=== PATIENT | male | born 1970 | race Caucasian/White ===

== ENCOUNTER 2020-04-02 09:51 | Outpatient (CLI) | payer BC, SELFPAY ==
--- NOTE | ~2020-04-02 | XR_ITS ---
EXAMINATION: XR chest 2V DATE: 04/02/2020 10:15 INDICATION: Cough. TECHNIQUE: Frontal and lateral views of the chest were obtained. COMPARISON: CT abdomen and pelvis 06/27/2010 FINDINGS: The chest demonstrates clear lungs without pneumonia, pleural effusion, or pneumothorax. Th e heart size is normal. IMPRESSION: 1. No acute cardiopulmonary disease. Reviewed, dictated and finalized at location B.
--- NOTE | ~2020-04-02 | XR_ITS ---
EXAMINATION: XR thoracic spine 2V DATE: 04/02/2020 10:16 INDICATION: Dorsalgia. TECHNIQUE: 3 views of thoracic spine were obtained. COMPARISON: None. FINDINGS: There is kyphosis of thoracic spine. Vertebral body heights are normal. There is mildly dec reased disc height at multiple levels in thoracic spine, worse in the upper thoracic spine. There are endplate osteophytes at most levels. IMPRESSION: 1. Mild thoracic spondylosis. 2. Thoracic kyphosis. Reviewed, dictated and finalized at location B.
== END 2020-04-02 09:52 | disposition home or self-care (01) ==
PROVIDERS: PCP Family Medicine; Visit Provider Nurse Practitioner Family
DX: R05 Cough (principal); M54.9 Dorsalgia, unspecified; M47.894 Other spondylosis, thoracic region
CPT/HCPCS: 71046; 72070

== ENCOUNTER → 2021-09-19 03:41 | Outpatient (CLI) | payer BC, SELFPAY ==
[2021-09-19 12:15] LABS: SARS-CoV-2 RNA PCR Negative
== END ==
PROVIDERS: PCP Family Medicine; Visit Provider Internal Medicine Gastroenterology
DX: Z01.812 Encounter for preprocedural laboratory examination (principal); Z20.822 Contact with and (suspected) exposure to COVID-19
CPT/HCPCS: C9803; U0003; U0005

== ENCOUNTER 2021-09-22 00:41 | Day surgery (SDC) | payer BC, SELFPAY ==
[2021-09-08 15:43] VITALS: BMI 25.1
[2021-09-22 09:00] VITALS: BP 127/78; PULSE 74; RESP 16; TEMP 37.1; O2SAT 97
--- NOTE | 2021-09-22 09:12 | P.PNAN_ITS ---
Anes - Initial Pre Proc Eval Procedure: Operation Date: 09/22/21 10:00 Proposed Procedures p Screening Colonoscopy - Master Alexis MD Date/Time: 09/22/21 09:12 Surgeon: Master Alexis MD Pre Op Diagnosis: neoplasm screening Patient Data Age: 51 Gender: M Height: 1.75 m Weight: 76.4 kg Last Vital Signs Temp 37.1 C 09/22/21 09:00 Pulse 74 09/22/21 09:00 Resp 16 09/22/21 09:00 BP 127/78 09/22/21 09:00 Pulse Ox 97 09/22/21 09:00 Allergies Allergy/AdvReac Type Severity Reaction Status Date / Time Penicillins Allergy Unknown Rash Verified 09/22/21 08:59 Home Medications Medication Instructions Recorded Confirmed Type No Home Medications 07/21/21 07/21/21 History sulfamethoxazole 800 1 tablet PO Q12H #42 tablet 07/21/21 07/21/21 Rx mg-trimethoprim 160 mg tablet Patient hx anesthesia problems: none Family hx anesthesia problems: none Results Review: All pre-operative results and documents have been reviewed as part of the pre-operative evaluation. [facility] Past Medical History Medical History BMI 23.0-23.9, adult BMI 24.0-24.9, adult Eye lesion Screening for malignant neoplasm of prostate Tobacco abuse Family History Family History Father Malignant neoplasm of prostate Family history of diabetes mellitus in first degree relative Mother Sibling Hypertension Sibling Cancer Hypertension Sibling Family history of diabetes mellitus in first degree relative Other Diabetes mellitus Social History Social History Smoking packs per day: 1 Smoking cigarettes per day: 20.0 Years smoked: 30 Smoking pack-years: 30.00 Smoking status: Current every day smoker Tobacco type: cigarettes Second hand tobacco smoke exposure: Yes Alcohol intake: never Substance use: never Substance use type: does not use Living arrangements: alone Additional occupation/education comments: [employer] Gender identity (if verbalized by the patient): Male Spiritual care concerns: No Anes - Eval Final PreProcedure Day of Procedure 09/22/21 09:12 Patient weight: normal Heart: regular rate and rhythm Lungs: clear to auscultation Airway: Mallampati scale class II Neurological: alert and oriented Last oral intake: >/= 8 hours ASA classification: II Emergent: no Anesthetic plan: proceed Anesthesia type and monitoring: general GIVS and standard monitoring Results Review: All pre-operative results and documents have been reviewed as part of the pre-operative evaluation. Informed Consent: The patient's anesthetic plan and its attendant risks and benefits were discussed with the patient/family/POA. Questions were solicited and answers provided to the satisfaction of the patient/family/POA.
--- NOTE | 2021-09-22 09:14 | PM.HPGS ---
History of Present Illness History of Present Illness Consent: Risks, benefits, and alternatives have been discussed and questions answered. Patient agrees to proceed with procedure. Chief complaint: neoplasm screening Narrative: Josep Finley is a 51 year old male here for first screening colonoscopy Review of Systems Constitutional: Constitutional: Denies headache(s) and Denies weakness Eyes: Eyes: Denies blurry vision ENT: Reports Normal hearing present, Denies headache(s) and Denies neck pain Cardiovascular: Cardiovascular: Denies chest pain and Denies dyspnea Respiratory: Respiratory: Denies dyspnea Gastrointestinal: Gastrointestinal: Reports no additional gastrointestinal complaints Genitourinary: Genitourinary: Denies dysuria Musculoskeletal: Musculoskeletal: Denies neck pain Integumentary/Breasts: Skin/Breast: Denies dry skin Neurologic: Reports Normal hearing present, Denies headache(s) and Denies weakness Psychiatric: Psychiatric: Denies anxiety Endocrine: Endocrine: Denies change in body appearance Hematologic/Lymphatic: Hematologic/Lymphatic: Denies easy bleeding Allergic/Immunologic: Allergic/Immunologic: Denies urticaria [facility] Past Medical History Medical History BMI 23.0-23.9, adult BMI 24.0-24.9, adult Eye lesion Screening for malignant neoplasm of prostate Tobacco abuse Family History Family History Father Malignant neoplasm of prostate Family history of diabetes mellitus in first degree relative Mother Sibling Hypertension Sibling Cancer Hypertension Sibling Family history of diabetes mellitus in first degree relative Other Diabetes mellitus Social History Social History Smoking packs per day: 1 Smoking cigarettes per day: 20.0 Years smoked: 30 Smoking pack-years: 30.00 Smoking status: Current every day smoker Tobacco type: cigarettes Second hand tobacco smoke exposure: Yes Alcohol intake: never Substance use: never Substance use type: does not use Living arrangements: alone Additional occupation/education comments: [employer] Gender identity (if verbalized by the patient): Male Spiritual care concerns: No Meds Home Medications and Allergies Home Medications Medication Instructions Recorded Confirmed Type No Home Medications 07/21/21 07/21/21 History sulfamethoxazole 800 1 tablet PO Q12H #42 tablet 07/21/21 07/21/21 Rx mg-trimethoprim 160 mg tablet Allergies Allergy/AdvReac Type Severity Reaction Status Date / Time Penicillins Allergy Unknown Rash Verified 09/22/21 08:59 Vital Signs Vital Signs - 24 hr 09/22/21 09:00 Temperature 98.7 F Pulse Rate 74 Respiratory Rate 16 Blood Pressure 127/78 Pulse Oximetry 97 Exam Const: General: comfortable and no acute distress HENMT: General nose exam: Normal nares present Eyes: General: appearance normal, both eyes and all related structures Neck: Neck: no JVD Resp: Auscultation: clear to auscultation bilaterally Cardio: Rate: regular rate Rhythm: regular rhythm GI: Inspection: non-distended GI Palp: Yes Soft to palpation Skin: General skin exam: normal color Neuro: General: gait normal Speech: normal speech Extrem: General: normal to inspection Psych: Mental Status: mental status grossly normal Assessment and Plan Assessment and plan (1) Screening for malignant neoplasm of colon: Code(s): Z12.11 - Encounter for screening for malignant neoplasm of colon Status: Acute Assessment and Plan: colonoscopy
[2021-09-22] MEDS: LACTATED RINGERS 1,000 ML 150 ML IV CONT (09:15)
[2021-09-22 09:35] VITALS: BP 88/59; PULSE 61; RESP 13; O2SAT 97
[2021-09-22 09:45] VITALS: BP 110/79; PULSE 50; RESP 12; O2SAT 95
[2021-09-22 09:55] VITALS: BP 142/89; PULSE 65; RESP 12; O2SAT 100
== END 2021-09-22 10:06 | disposition home or self-care (01) ==
PROVIDERS: PCP Family Medicine; Visit Provider Internal Medicine Gastroenterology
PROC: 0DJD8ZZ Inspection of Lower Intestinal Tract, Via Natural or Artificial Opening Endoscopic (ICD-10-PCS; CPT 45378; principal; 2021-09-22 10:00)
DX: Z12.11 Encounter for screening for malignant neoplasm of colon (principal); K64.8 Other hemorrhoids; K63.5 Polyp of colon; F17.210 Nicotine dependence, cigarettes, uncomplicated
CPT/HCPCS: 45385; 88305; J2001; J2704; J7120

== ENCOUNTER 2022-07-18 18:21 | Emergency (ER) | payer BC, SELFPAY ==
[2022-07-18] VITALS (10 sets, daily range): BP systolic 94–123; BP diastolic 62–81; PULSE 64–85; RESP 13–21; O2SAT 96–98
--- NOTE | ~2022-07-18 | XR_ITS ---
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 RESULT: Lines, tubes, and devices: None. Lungs and pleura: Clear. Cardiomediastinal silhouette: Stable. Other: No acute osseous or upper abdominal finding. IMPRESSION: No acute cardiopulmonary process. Reviewed, dictated and finalized at location K. TRICAL TESTS SUPERVISOR
--- NOTE | 2022-07-18 18:24 | ECG_ITS ---
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
--- NOTE | 2022-07-18 18:54 | ED.SYNCOPE ---
HPI - Syncope General Chief Complaint: Syncope Stated Complaint: syncope Time Seen by Provider: 07/18/22 18:42 History of Present Illness HPI narrative: Patient is a 52-year-old male presenting with syncope. Patient states that he was having a couple of beers and smoked a little marijuana while hanging out with his adult son and brother. States that he was standing in the kitchen when he suddenly became lightheaded and drenched in cold sweat. Patient started to pass out so his son helped lower him to the ground. His son states that he then just up and became extremely pale before again syncopizing. Patient states that he continued to feel lightheaded and nauseated until EMS started an IV. States that he is starting to feel better at this point. States that he has been dealing with viral symptoms since . States that he has chest tightness and some shortness of breath but he denies chest pain or palpitations. States he has not seen a doctor in many years. Denies recent fevers, headache, abdominal pain, vomiting, diarrhea, dysuria, leg swelling. Related Data Allergies Allergy/AdvReac Type Severity Reaction Status Date / Time Penicillins Allergy Unknown Rash Verified 09/22/21 08:59 Review of Systems Review of Systems: All systems reviewed & are unremarkable except as noted in HPI and below PMFSH Past Medical History Medical History BMI 23.0-23.9, adult BMI 24.0-24.9, adult Eye lesion Screening for malignant neoplasm of prostate Tobacco abuse Family History Family History Father Malignant neoplasm of prostate Family history of diabetes mellitus in first degree relative Mother Sibling Hypertension Sibling Cancer Hypertension Sibling Family history of diabetes mellitus in first degree relative Other Diabetes mellitus Social History Social History Smoking packs per day: 1 Smoking cigarettes per day: 20.0 Years smoked: 30 Smoking pack-years: 30.00 Smoking status: Current every day smoker Tobacco type: cigarettes Second hand tobacco smoke exposure: Yes Alcohol intake: never Substance use: never Substance use type: does not use Additional occupation/education comments: [employer] Gender identity (if verbalized by the patient): Male Spiritual care concerns: No Exam Narrative: GENERAL: Well-appearing, well-nourished, and in no acute distress. HEAD: Normocephalic, atraumatic. EYES: PERRLA and EOMI. ENT: Nares clear, no rhinorrhea or epistaxis. Mucous membranes dry NECK: Supple. CHEST: Diminished breath sounds bilaterally with decreased air movement, no respiratory distress HEART: Regular rate and rhythm. No murmur heard. Normal peripheral pulses. ABDOMEN: Soft, nontender, nondistended, normal active bowel sounds. EXTREMITIES: Normal range of motion. No edema. SKIN: Warm, dry, no rash. NEURO: No focal deficits. Alert and oriented x3. PSYCH: Normal mood and affect. Course Vital Signs Vital signs: Vital Signs Pulse Rate 72 07/18/22 18:40 Respiratory Rate 16 07/18/22 18:40 Blood Pressure 94/62 L 07/18/22 18:40 Pulse Oximetry 98 07/18/22 18:40 Pulse Rate 78 07/18/22 21:38 Respiratory Rate 13 07/18/22 21:38 Blood Pressure 117/75 07/18/22 21:38 Pulse Oximetry 96 07/18/22 21:38 MDM - Syncope MDM Narrative Medical decision making narrative: Patient is a 52-year-old male presenting with syncope. Patient was orthostatic for EMS and has soft pressures here in the 90s over 60s. Fluids are ongoing. Exam is concerning for diminished breath sounds bilaterally with decreased air movement. Suspect that there is a component of undiagnosed COPD as the patient has not seen a physician for many years and states that he has smoked h
[2022-07-18] MEDS: methylPREDNISolone SOD SUCC 125 MG VIAL IV PUSH (19:17)
[2022-07-18] MEDS: SODIUM CHLORIDE 0.9% IV 1,000 ML 999 ML IV CONT ×2 (19:17→20:36)
[2022-07-18 19:20] LABS: Basophils Percent Auto 0.4 % (0.2-1.2); Eosinophils Absolute Auto 0.1 K/mm3 (0-0.3); Eosinophils Percent Auto 1.4 % (0-4.4); Hematocrit 44.4 % (42.0-52.0); Hemoglobin 15.2 g/dL (14.0-18.0); Immature Granulocyte Absolute 0.05 K/mm3 (0.00-0.031); Immature Granulocyte Percent A 0.5 % (0-0.5); Lymphocytes Percent Auto 19.3 % (18.3-44.2); Mean Corpuscular HGB Conc 34.2 g/dl (32-36); Mean Corpuscular Hemoglobin 32.3 pg (26-34); Mean Corpuscular Volume 94.5 fl (80-100); Mean Platelet Volume 10.7 fl (7.4-10.4); Monocytes Percent Auto 9.3 % (2.6-8.5); Neutrophils Absolute Auto 7.2 K/mm3 (1.3-6.7); Neutrophils Percent Auto 69.1 % (45.5-73.1); Platelet Count Result 183 k/mm3 (150-375); Red Cell Distribution Width 13.2 % (11.5-14.5); White Blood Count 10.4 K/mm3 (4.5-10.0)
[2022-07-18 19:33] LABS: Alanine Aminotransferase 29 U/L (6-50); Albumin Level 4.2 g/dL (3.5-5.1); Alkaline Phosphatase 87 U/L (38-126); Anion Gap 7 mmol/L (8-16); Aspartate Amino Transferase 36 U/L (17-59); Bilirubin,Total 0.6 mg/dL (0.2-1.3); Blood Urea Nitrogen 19 mg/dL (9-20); Calcium 8.7 mg/dL (8.4-10.2); Carbon Dioxide 27 mmol/L (22-30); Chloride 103 mmol/L (98-107); Estimated CRCL calculation 110 ml/min; Estimated Glomerular Filt Rate > 60; Glucose 106 mg/dL (65-110); Potassium 4.5 mmol/L (3.4-5.0); Sodium 137 mmol/L (137-145)
[2022-07-18 19:54] LABS: Troponin I < 0.012 ng/mL (0.000-0.034)
[2022-07-18 19:57] LABS: Influenza A QL RT-PCR Negative (Negative); Influenza B QL RT-PCR Negative (Negative); SARS-CoV-2 RNA PCR Negative
--- NOTE | 2022-07-18 21:18 | PC.NURSE ---
patient refused neb tx. provider aware
== END 2022-07-18 21:38 | disposition home or self-care (01) ==
PROVIDERS: Emergency Provider Emergency Medicine; PCP Family Medicine
DX: I95.1 Orthostatic hypotension (principal); F17.210 Nicotine dependence, cigarettes, uncomplicated; Z20.822 Contact with and (suspected) exposure to COVID-19
CPT/HCPCS: 36415; 71046; 80053; 84484; 85025; 87636; 93005; 96361; 96374; 99284; J2930; J7030

== ENCOUNTER 2022-08-08 06:32 | Outpatient (CLI) | payer BC, SELFPAY ==
[2022-08-08 07:18] LABS: Cholesterol 188 mg/dL (0-200); HDL Direct 42 mg/dL; Triglycerides 80 mg/dL (<150)
[2022-08-08 07:28] LABS: LDL Cholesterol Direct 107 mg/dL
[2022-08-08 07:50] LABS: Prostate Specific Antigen 1.8 ng/mL (< OR = 4.0)
== END 2022-08-08 06:33 | disposition home or self-care (01) ==
PROVIDERS: PCP Family Medicine; Visit Provider Nurse Practitioner Family
DX: Z13.220 Encounter for screening for lipoid disorders (principal); Z12.5 Encounter for screening for malignant neoplasm of prostate; Z80.42 Family history of malignant neoplasm of prostate; Z13.29 Encounter for screening for other suspected endocrine disorder
CPT/HCPCS: 36415; 80061; 84153; 84443; G0103

== ENCOUNTER 2022-08-28 14:01 | Outpatient (CLI) | payer BC, SELFPAY ==
--- NOTE | ~2022-08-28 | CT_ITS ---
EXAMINATION: CT lung screening DATE: 08/28/2022 14:21 INDICATION: smoking history and increased dyspnea w/exertion TECHNIQUE: Computed tomography (CT) of the chest was performed without intravenous contrast. Addition al 3D reconstructions utilizing coronal maximum intensity projection (MIP) were performed. Automated exposure control and iterative reconstruction technique were employed. The dose-length product was 13 4.00 mGy-cm. COMPARISON: None FINDINGS: Normal variant azygos lobe and fissure. 2 mm right upper lobe nodule on series 4, image 46. 3 mm flat intrafissural lymph node along the left major fissure. No other suspicious pulmonary nodules, pneumo jose ramon, pulmonary edema or pleural effusion. Heart size is normal. Aortic valve calcification. Thoracic aorta is normal in caliber. No pathologically enlarged thoracic lymphadenopathy. Chronic mild anterio r wedging of a lower thoracic vertebral bodies. Moderate spondylosis. IMPRESSION: 1. Lung-RADS category 2: Benign appearance or behavior. Continue annual screening with noncontrast lo w-dose chest CT in 12 months. Reviewed, dictated and finalized at location A. TECHNOLOGIST IMPRESSION: 1. Lung-RADS category 2: Benign appearance or behavior. Continue annual screeni ng with noncontrast low-dose chest CT in 12 months.
== END 2022-08-28 14:02 | disposition home or self-care (01) ==
PROVIDERS: PCP Family Medicine; Visit Provider Nurse Practitioner Family
DX: Z12.2 Encounter for screening for malignant neoplasm of respiratory organs (principal); F17.210 Nicotine dependence, cigarettes, uncomplicated
CPT/HCPCS: 71271

== ENCOUNTER 2024-10-24 01:06 | Emergency (ER) | payer BC, SELFPAY ==
--- NOTE | ~2024-10-24 | XR_ITS ---
Right Knee Technique: AP, lateral, and oblique views were obtained. Clinical History: Pain Findings: No fracture or dislocation is seen. Osseous alignment is anatomic. Joint spaces are preserv ed without degenerative or erosive change. Soft tissues are unremarkable. No joint effusion is seen. Impression: Unremarkable right knee radiographs. Reviewed, dictated and finalized at [facility]. Impression: Unremarkable right knee radiographs.
--- OUTSIDE RECORDS SUMMARY | 2024-10-24 01:09 | XMS_ITS ---
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 LEFT C5/6 & C6/7 SESI (s) SOCIAL HISTORY Tobacco Use: Social History Observation Description Date Details (start date - stop date) Current Smoker NA - NA Sex Assigned At : Social History Observation Description Sex Assigned At Unknown Tobacco Use/Smoking Question Answer Notes Are you a current smoker PROBLEMS Problem Type ICD Code Onset Dates Problem Status W/U Status Risk SNOMED Code Notes Problem Cervical radiculopathy (M54.12) Active confirmed Cervical radiculopathy (23889654) Problem Cervical spondylosis with radiculopathy (M47.22) Active confirmed Cervical spondylosis without myelopathy (415099963) Problem Herniated nucleus pulposus, C6-7 left (M50.223) Active confirmed Displacement of cervical intervertebral disc without myelopathy (56835918) Problem 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) Active confirmed Spinal stenosis in cervical region (disorder) (90366225) VITAL SIGNS Temperature 98.1 degrees Fahrenheit 12/22/19 24 Blood pressure systolic 139 mm Hg 12/22/19 24 Blood pressure diastolic 83 mm Hg 024 Heart Rate 78 /min 12/22/2023 Respiratory Rate 18 /min 12/22/2023 Height 70 in 12/22/2023 Weight 165 lbs 12/22/2023 BMI 23.67 kg/m2 12/22/2023 Encounters Encounter Location Date Provider Diagnosis [facility] [address] [place] [address] 12/22/2023 Thomas Hernandez Cervical radiculopat hy M54.12 ; Cervical spondylosis with radiculopathy M47.22 ; Herniated nucleus pulposus, C6-7 left M50.223 and Foraminal stenosis of cervical region M99.81 ASSESSMENTS Encounter Date Diagnosis Assessment Notes Treatment Notes Treatment Clinical Notes Section Notes 12/22/2023 Cervical radiculopathy (ICD-10 - M54.12) Impression1. Persistent neck pain radiating nondominant left upper extremity, possibly representing C6 and overlapping C7 radiculopathy.2. Spur-disc complex C5/6 with moderate canal stenosis but severe bilateral foraminal encroachment.3. Left paracentral C6/7 disc extrusion with severe canal stenosis.4. Status post left shoulder rotator cuff repair 1023.5. Work-related injury 03/15/2023.Plan1. Proceed with left C5/6 and C6/7 selective epidural steroid injections using transforaminal approaches with fluoroscopy. He does not request sedation.2. Patient expects to follow-up at some point in the near future with Dr. Saulo Winter although he is not sure about a specific appointment. I suggested he call their office in order to make sure appointment is scheduled.3. He helps to get issues regarding physical therapy resolved so that he can start rehabilitative efforts for his neck and arm in the near future. Pain scores on numeric scale:Preinje ction: 01/16Postinjec tion: 12/1612/22/2023 Cervical spondylosis with radiculopathy (ICD-10 - M47.22) 12/22/2023 Herniated nucleus pulposus, C6-7 left (ICD-10 - M50.223) 12/22/2023 Foraminal stenosis of cervical region (ICD-10 - M99.81) PLAN OF TREATMENT Treatment Notes Assessment Notes Cervical radiculopathy Impression1. Pers istent neck pain radiating nondominant left upper extremity, possibly representing C6 and overlapping C7 radiculopathy.2. Spur-disc complex C5/6 with moderate canal stenosis but severe bilateral foraminal encroachment.3. Left paracentral C6/7 disc extrusion with severe canal stenosis.4. Status post left shoulder rotator cuff repair 1023.5. Work-related injury 03/15/2023.Plan1. Proceed with left C5/6 and C6/7 selective epidural steroid injections using transforaminal approaches with fluoroscopy. He does not request sedation.2. Patient expects to follow-up at some point in the near future with Dr. Saulo Winter although he is not sure about a specific appointment. I suggested he call their office in order to make sure appointment is scheduled.3. He helps to get issues regarding physical therapy resolved so that he can start rehabilitative efforts for his neck and arm in the near future. 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 This form was reviewed and the responses included in this note. When did the pain first begin? months ago. What caused the pain? work injury . Where does the pain start? shhoulder and neck. Where does the pain seem to travel? neck. On scale of 1 to 10, what is the pain like today? 6. On a scale of 1 to 10, what is your least pain? 4. On a scale of 1 to 10, what is your worst pain? 9. On a scale of 1 to 10, what is your overall average pain? 9. In your words, what best describes your pain? shooting, sharp, aching. The pain is best described as: severe, moderate. Which word best describes the timing of the pain? constant, very variable. As times goes by, is the pain getting? about the same. Which symptoms is the pain associated with? numbness, weakness, tingling, headache. What makes the pain worse? coughing, rolling in bed, exercise, weather changes, stress/fatigue. Which factors seem to relieve the pain? lying down, relaxation. What previous treatments have you tried? occupational therapy. Have you ever tried Physical Therapy? yes. List past medications taken for your pain problem oxyeodone after surgery for a week and i got off did not like it. tylenol. Oswestry Score 15. This 53-year-old ZDJQW-stnf-nefdwvro white male presents to the pain clinic today upon referral from Dr. Saulo Winter, his orthopedic spine dairy nutrition consultant, with specific request for left C5/6 and C6/7 selective epidural steroid injections utilizing transforaminal approaches with fluoroscopy. This gentleman describes a work-related injury that occurred on 03/15/2023. 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 He was subsequently found to have rotator cuff pathology and underwent rotator cuff repair in May 2023. Patient states subsequent left-sided neck pain radiating to the left periscapular and lateral arm. He does not describe upper extremity numbness or focal weakness other than as related to his recovery from shoulder surgery. He has not undergone previous cervical spinal surgery. He has been involved in extensive rehabilitation for his left shoulder issues. He indicates that Dr. Winter has ordered physical therapy, directed specifically for his neck and arm symptoms, yet to be scheduled. Past medical history includes depression/anxiety. He does smoke 1 pack cigarettes per day. He indicates unspecified allergy to penicillin. I nhi study M OR cervical spine without contrast 11/23/2023 revealed normal spinal cord signal throughout its observed course. Preservation of cervical lordosis. C2/3 reveals mild facet arthropathy without stenosis. C3/4 reveals mild bilateral foraminal stenosis with uncovertebral and mild facet arthropathy. C4/5 disc bulge with mild central canal stenosis as well as moderate left and mild right-sided foraminal encroachment. At C5/6, spur-disc complex results in mild to moderate central canal stenosis but severe bilateral foraminal stenosis. At C6/7, left paracentral disc extrusion compresses the cord with severe central canal stenosis and mild left-sided foraminal encroachment. C7/T1 segment was grossly normal. * ROS: Pain Management ROS: Patient Reports: GENERAL: weight or appetite changes, fever, chills, disturbed sleeping habits. Patient Denies: EYE: eye infections, blurred vision, double vision, blindness. Patient Denies: ENT: hearing loss, inflamed nose, hoarseness, sore throat, bloody nose, sinusitis, dizziness. Patient Denies: CARDIAC: chest pains, heart murmur, skipped beats. Patient Denies: GENITOURINARY bladder incontinence, difficulty urinating. Patient Denies: RESPIRATORY cough, coughing up blood, wheezing, shortness of breath, difficulty breathing on exertion. Patient Denies: GI constipation, diarrhea, blood in stools, nausea/vomiting. Patient Reports: NEUROLOGIC headaches. Patient Denies: NEUROLOGIC dizziness, falling, seizures, numbness, tremor. Patient Denies: ENDOCRINE hot and cold flashes. Patient Denies: HEMATOLOGICAL easy bruisability, difficulty in clotting the blood. Patient Denies: JOINTS joint or muscle limitation and pain other than the present illness. Patient Reports: PSYCHIATRIC mood swings, anxiety. Patient Denies: PSYCHIATRIC: depression. Patient Denies: SKIN lacerations, abrasions, postules, nodules, tumors, breast changes. * Medical History: * Surgical History: No Surgical History documented. * Hospitalization/Major Diagno stic Procedure: No Hospitalization History. * Family History: Siblings: diabetes. Father: prostate cancer, diabetes. Mother: . * Social History: Tobacco Use: Tobacco Use/Smoking Are you a current smoker Occupation Status: Employment Status: Employed. Marital Status: Marital Status: Single. Workmen's Compensation: Work Comp Status: Being treated under Workmen's Compensation, Not Receiving Disability benefits, Involved in legal action related to pain problem or considering it in the future. Number of Children: Number of children: 2. Education: How far did you get in your education?: trade school. Drugs/Alcohol: Drugs Have you used drugs other than those for medical reasons in the past 12 months? No Caffeine Intake: 2-3 cups per day Do you smoke marijuana?: Denies. Do you drink alcohol?: Socially. * Medications: None * Allergies: Penicillinno[Allergies Verified] Objective: * Vitals: Temp:98.1F, HR:78/min, BP:139/83mm Hg, Wt:165lbs, BMI:23.67Index, Ht: 70 in, RR:18/min, Ht-cm: 177.8 cm, Wt-k.84 kg. * Examination: DGS: New Patient Exam: General The patient appeared in no distress at rest, The patient is alert and oriented to time, person, and place. Respiratory Coarse breath sounds with expiratory squeaks reflect chronic, and ongoing, tobacco use.. Cardiovascular Regular rate and rhythm without murmur. No peripheral edema noted.. Gastrointestinal Abdomen is soft and nontender without obvious organomegaly or masses. Neck Grossly normal head position is observed. He reported greater pain provocation with cervical extension and rotation with sidebending to his symptomatic left side in comparison to flexion and rotation/sidebending to the right. He was mildly tender along the left cervical paraspinal, trapezius and levator scapulae area. No active spasm noted.. Musculoskeletal Patient has undergone previous left shoulder rotator cuff repair May 2023. He has mild discomfort with full shoulder abduction. Minimal discomfort with medial humeral head rotation. External rotation of the left shoulder with the elbow flexed remains limited.. Neurologic Patient is right-hand dominant. He does not describe areas of persistent sensory loss in the upper extremities. No areas of overt muscular atrophy noted. There is perhaps subtle weakness of left triceps power against resistance although this also represents his nondominant arm. DTRs +1 bilateral biceps, triceps and brachioradialis. Spurling's equivocally positive left side. He does not describe signs/symptoms of cervical myelopathy.. Assessment: * Assessment: 1. Cervical radiculopathy - M54.12 (Primary) 2. Cervical spondylosis with radiculopathy - M47.22 3. Herniated nucleus pulposus, C6-7 left - M50.223 4. Foraminal stenosis of cervical region - M99.81 Plan: * Treatment: * Procedures: Left C5/6 and C6/7 selective epidural steroid injections with fluoroscopy After signing consent, patient was taken to procedure area where he was placed supine on fluoroscopically compatible table. Monitors were applied consisting of automatic blood pressure cuff and pulse oximeter. No sedation was administered and no IV established. With head turned to the right, left side of neck was prepped with 5% Betadine solution allowed to dry on the skin. Sterile drapes were applied and aseptic technique observed. Using left oblique fluoroscopic imaging, the C5/6 and C6/7 foramina were identified and overlying skin at each site anesthetized with 0.5% preservative-free lidocaine via 27-gauge needle. 25-gauge 3.5 inch spinal needles were carefully inserted into the posterior aspect of the left C6/7 followed by C5/6 foramina. Injection of less than 1 mL Omnipaque 240 via each needle revealed outline of the exiting C7 and C6 nerve roots respectively with regional epidural distribution. This was followed by injection of 2 mL volume at each level consisting of 0.5% preservative-free lidocaine with 5 mg preservative free and particulate free dexamethasone. [place] withdrawn tips intact. No complications encountered. Prep was wiped from the skin and latex free Band-Aids placed over puncture sites. He was transported to recovery area where ice pack was applied to injection sites. He was observed for short while before being discharged in satisfactory condition. He noted minimal change in his pain at the time of discharge. Please refer to clinical notes for specific pain scores. * Therapeutic Injections: LEFT C5/6 and C6/7 SESI's given by Thomas Hernandez DO * Procedure Codes: LEFT C5/6 and C6/7 SESI's * Preventive Medicine: PQRS: PQRS G8420:Normal BMI - f/u plan not required., G8427: Patient is not currently taking any medications OR performance met., 4004F:Patient screened for tobacco use and identified as a user and received intervention.. Oswestry Score: Oswestry Score 15. * Images: * Sign off status: Completed true * Provider: Thomas Hernandez DO Date: 12/22/2023 History and Physical Notes * HPI (History of Present Illness) Category Sub-Category Detail Notes Category Not es New Patient Questionnaire When did the pain first begin? months ago This 53-year-old YYFMY-rjxy-enltmvzt white male presents to the pain clinic today upon referral from Dr. Saulo Winter, his orthopedic spine dairy nutrition consultant, with specific request for left C5/6 and C6/7 selective epidural steroid injections utilizing transforaminal approaches with fluoroscopy. This gentleman describes a work-related injury that occurred on 03/15/2023. 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 He was subsequently found to have rotator cuff pathology and underwent rotator cuff repair in May 2023. Patient states subsequent left-sided neck pain radiating to the left periscapular and lateral arm. He does not describe upper extremity numbness or focal weakness other than as related to his recovery from shoulder surgery. He has not undergone previous cervical spinal surgery. He has been involved in extensive rehabilitation for his left shoulder issues. He indicates that Dr. Winter has ordered physical therapy, directed specifically for his neck and arm symptoms, yet to be scheduled. Past medical history includes depression/anxiety. He does smoke 1 pack cigarettes per day. He indicates unspecified allergy to penicillin. Imaging study MRI cervical spine without contrast 11/23/2023 revealed normal spinal cord signal throughout its observed course. Preservation of cervical lordosis. C2/3 reveals mild facet arthropathy without stenosis. C3/4 reveals mild bilateral foraminal stenosis with uncovertebral and mild facet arthropathy. C4/5 disc bulge with mild central canal stenosis as well as moderate left and mild right-sided foraminal encroachment. At C5/6, spur-disc complex results in mild to moderate central canal stenosis but severe bilateral foraminal stenosis. At C6/7, left paracentral disc extrusion compresses the cord with severe central canal stenosis and mild left-sided foraminal encroachment. C7/T1 segment was grossly normal. What caused the pain? work injury Where does the pain start? shhoulder and neck Where does the pain seem to travel? neck On scale of 1 to 10, what is the pain like today? 6 On a scale of 1 to 10, what is your least pain? 4 On a scale of 1 to 10, what is your worst pain? 9 On a scale of 1 to 10, what is your overall average pain? 9 In your words, what best gustavo cribes your pain? shooting, sharp, aching The pain is best described as: severe, m oderate Which word best describes th e timing of the pain? constant, very variable As times goes by, is the pain getting? a bout the same Which symptoms is the pain a ssociated with? numbness, weakness, tingling, headache What makes the pain worse? coughing, rol ling in bed, exercise, weather changes, stress/fatigue Which factors seem to relieve the pain? lying down, relaxation What previous treatments have you tried? occupational therapy Have you ever tried Physical Therapy? ye s List past medications taken for your pain problem oxyeodone after surgery for a week and i got off did not like it. tylenol Pain Evaluation The patient complete d a questionnaire that best described the pain. This form was reviewed and the responses included in this note Oswestry Score 15 Examination Category Sub-Category Detail Notes Category Not es DGS: New Patient Exam General The patien t appeared in no distress at rest, The patient is alert and oriented to time, person, and place Respiratory Coarse breath sounds with expiratory squeaks reflect chronic, and ongoing, tobacco use. Cardiovascular Regular rate and rhy thm without murmur. No peripheral edema noted. Gastrointestinal Abdomen is soft and nontender without obvious organomegaly or masses Neck Grossly normal head position is observed. He reported greater pain provocation with cervical extension and rotation with sidebending to his symptomatic left side in comparison to flexion and rotation/sidebending to the right. He was mildly tender along the left cervical paraspinal, trapezius and levator scapulae area. No active spasm noted. Musculoskeletal Patient has undergon e previous left shoulder rotator cuff repair May 2023. He has mild discomfort with full shoulder abduction. Minimal discomfort with medial humeral head rotation. External rotation of the left shoulder with the elbow flexed remains limited. Neurologic Patient is right-leblanc d dominant. He does not describe areas of persistent sensory loss in the upper extremities. No areas of overt muscular atrophy noted. There is perhaps subtle weakness of left triceps power against resistance although this also represents his nondominant arm. DTRs +1 bilateral biceps, triceps and brachioradialis. Spurling's equivocally positive left side. He does not describe signs/symptoms of cervical myelopathy.
--- OUTSIDE RECORDS SUMMARY | 2024-10-24 01:09 | XMS_ITS | Clinical Summary ---
Author Organization [facility] [facility] Address [address] [place] [address] Care Team Providers Care Synthetic Filament Extruder Name Role Phone Kodi Naidu MD Primary Care Provider [phone] [facility],non[facility] Affiliates and Associated Physician Practices is amultiple site organization consisting of ambulatory clinics and hospital sitesin [place], [place], [place] and [place]. This disclosure is being madepursuant to the Care Everywhere program and may not contain all information available regarding this patient. Last updated 18.[facility] Allergies Active Allergy Reactions Criticality Noted Date Comments Penicillins 03/22/2017 Medications * Be aware that medications may not be up to date on this document. Alwaysverify current medications with the patient. Medication Sig Dispensed Refills Start Date End Date Status naproxen (NAPROSYN) 500 MG tablet Take 1 Tab by mouth 2 times daily as needed for Pain 20 Tab 03/22/2017 Active Social History Tobacco Use Types Packs/Day Years Used Date Smoking Tobacco: Every Day Cigarettes Alcohol Use Standard Drinks/Week Comments Yes 0 (1 standard drink = 0.6 oz pur e alcohol) socially Sex and Gender Information Value Date Recorded Sex Assigned at Not on file Gender Identity Not on file Sexual Orientation Not on file Last Filed Vital Signs Vital Sign Reading Time Taken Comments Blood Pressure 139/80 03/02/2022 3:48 PM CDT Pulse 63 03/02/2022 3:48 PM CDT Temperature 36.9 C (98.5 F) 03/02/2022 12:36 PM CDT Respiratory Rate 16 03/02/2022 3:48 PM CDT Oxygen Saturation 98% 03/02/2022 3:48 PM CDT Inhaled Oxygen Concentration - - Weight 74.8 kg (165 lb) 03/02/2022 12:36 PM CDT Height 177.8 cm (5' 10 ) 03/02/2022 12:36 PM CDT Body Mass Index 23.68 03/02/2022 12:36 PM CDT Plan of Treatment Health Maintenance Due Date Last Done Comments COLOGUARD (AGES 45-75) - COL ON CA SCREENING 1970 COLON MONITORING 1970 COLONOSCOPY - COLON CA SCREENING 1970 CT COLONOGRAPHY - COLON CA SCREENING 1970 Colorectal Cancer Screening 1970 FIT - COLON CA SCREENING 1970 FLEX SIG - COLON CA SCREENING 1970 LIPID TESTING 1970 HIV SCREENING 1985 HEPATITIS C SCREENING 02/22/1988 DTAP/TDAP/TD VACCINES (1 - Tdap) 1989 HEPATITIS B VACCINE (1 of 3 - 19+ 3-dose series) 1989 PNEUMOCOCCAL VACCINE 50+ (1 of 2 - PCV) 1989 PNEUMOCOCCAL VACCINE (1 of 2 - PCV) 1989 ZOSTER VACCINE (1 of 2) 02/27/2020 COVID-19 VACCINE (1 - 2023-2 5 season) 2024 INFLUENZA VACCINE (#1) 2024 DEPRESSION SCREENING 08/09/2024 HIB VACCINE Aged Out No longer eligi ble based on patient's age to complete this topic HPV VACCINE Aged Out No longer eligi ble based on patient's age to complete this topic MENINGOCOCCAL (Group B) VACC INE SHARED DECISION-MAKING Aged Out No longer eligibl e based on patient's age to complete this topic MENINGOCOCCAL GROUPS A/C/Y/W VACCINE Aged Out No longer eligible b ased on patient's age to complete this topic Care Teams Synthetic Filament Extruder Relationship Specialty Start Date End Date Kodi Naidu MD [address] [place] [address] PCP - General 09/26/21
--- OUTSIDE RECORDS SUMMARY | 2024-10-24 01:09 | XMS_ITS | Patient Health Record ---
Author Organization [facility] [place] Address [address] [place] [address] Care Team Providers Care Accredited Legal Secretary Name Role Phone Thomas Hernandez Unavailable [phone] ALLERGIES Allergen (clinical drug ingredient) Drug/Non Drug Allergy documented on EMR Reaction Allergy Type Onset Date Status Penicillin Unknown Drug Allergy Active REASON FOR REFERRAL No Information SOCIAL HISTORY Tobacco Use: Social History Observation Description Date Details (start date - stop date) Current Smoker NA - NA Sex Assigned At : Social History Observation Description Sex Assigned At Unknown Tobacco Use/Smoking Question Answer Notes Are you a current smoker PROBLEMS Problem Type ICD Code Onset Dates Problem Status W/U Status Risk SNOMED Code Notes Problem Cervical spondylosis with radiculopathy (M47.22) Active confirmed Cervical spondylosis without myelopathy (467189769) Problem Cervical radiculopathy (M54.12) Active confirmed Cervical radiculopathy (80012963) Problem 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) Active confirmed Spinal stenosis in cervical region (disorder) (71379616) Problem Herniated nucleus pulposus, C6-7 left (M50.223) Active confirmed Displacement of cervical intervertebral disc without myelopathy (92423640) VITAL SIGNS Heart Rate 80 /min 01/13/2024 Temperature 98.6 degrees Fahrenheit 01/13/2024 Respiratory Rate 18 /min 01/13/2024 Blood pressure diastolic 77 mm Hg 01/13/2024 Height 70 in 01/13/2024 Blood pressure systolic 137 mm Hg 01/13/2024 Weight 165 lbs 01/13/2024 BMI 23.67 kg/m2 01/13/2024 Encounters Encounter Location Date Provider Diagnosis [facility] [address] [place] [address] 12/22/2023 Thomas Hernandez Cervical radiculopat hy M54.12 ; Cervical spondylosis with radiculopathy M47.22 ; Herniated nucleus pulposus, C6-7 left M50.223 and Foraminal stenosis of cervical region M99.81 [facility] [address] [place] [address] 01/13/2024 Thomas Hernandez Cervical spondylosis with radiculopathy M47.22 and Herniated nucleus pulposus, C6-7 left M50.223 [facility] [address] [place] [address] 12/21/2023 Thomas Hernandez ASSESSMENTS Encounter Date Diagnosis Assessment Notes Treatment Notes Treatment Clinical Notes Section Notes 12/22/2023 Cervical spondylosis with radiculopathy (ICD-10 - M47.22) 12/22/2023 Cervical radiculopathy (ICD-10 - M54.12) Impression1. [...] scores on numeric scale:Preinje ction: 01/16Postinjec tion: 12/1601/13/2024 Cervical spondylosis with radiculopathy (ICD-10 - M47.22) Impression1. Persistent neck pain, infrequently radiating along the lateral aspect of left arm. Cervical spondylosis with component of facet arthropathy C5/6 and C6/7.2. Spur-disc complex C5/6 with moderate canal and severe bilateral foraminal stenosis.3. Left paracentral C6/7 disc extrusion with severe canal stenosis.4. Work-related injury 03/15/2023.Plan1. Proceed with left C5/6 and C6/7 facet joint injections with fluoroscopy. He does not request sedation.2. Patient expects to follow-up with Dr. Saulo Winter in 1 week. Pain scores on numeric scale:Preinje ction: 02/15Postinjec tion: 0/10 01/13/2024 Herniated nucleus pulposus, C6-7 left (ICD-10 - M50.223) 12/22/2023 Herniated nucleus pulposus, C6-7 left (ICD-10 - M50.223) 12/22/2023 Foraminal stenosis of cervical region (ICD-10 - M99.81) PLAN OF TREATMENT No Information MEDICATIONS ADMINISTERED Medication Instructions Date of Administration Dosage Notes LEFT C5/6 and C6/7 Facet Injections 01/13/2024 LEFT C5/6 and C6/7 SESI's 12/22/2023 MEDICAL (GENERAL) HISTORY Medical History History ICD Code skin cancer headaches depression anxiety
--- OUTSIDE RECORDS SUMMARY | 2024-10-24 01:10 | XMS_ITS ---
Author Organization [facility] [place] Address [address] [place] [address] Care Team Providers Care Tax Director Name Role Phone HernandezThomas Unavailable [phone] ALLERGIES Allergen (clinical drug ingredient) Drug/Non Drug Allergy documented on EMR Reaction Allergy Type Onset Date Status Penicillin Unknown Drug Allergy Active REASON FOR VISIT WC--OK PER Maryellen Jaime/ Dr. Saulo Winter/ LEFT C5/6 and C6/7 Facet (s) VITAL SIGNS Temperature 98.6 degrees Fahrenheit 01/13/20 24 Blood pressure systolic 137 mm Hg 01/13/20 24 Blood pressure diastolic 77 mm Hg 024 Heart Rate 80 /min 01/13/2024 Respiratory Rate 18 /min 01/13/2024 Height 70 in 01/13/2024 Weight 165 lbs 01/13/2024 BMI 23.67 kg/m2 01/13/2024 Encounters Encounter Location Date Provider Diagnosis [facility] [address] [place] [address] 01/13/2024 Thomas Hernandez Cervical spondylosis with radiculopathy M47.22 and Herniated nucleus pulposus, C6-7 left M50.223 ASSESSMENTS Encounter Date Diagnosis Assessment Notes Treatment Notes Treatment Clinical Notes Section Notes 01/13/2024 Cervical spondylosis with radiculopathy (ICD-10 - M47.22) [...] nucleus pulposus, C6-7 left (ICD-10 - M50.223) PLAN OF TREATMENT Treatment Notes Assessment Notes Cervical spondylosis with radiculopathy Impression1. Persistent neck pain, infrequently radiating along [...] with Dr. Saulo Winter in 1 week. MEDICATIONS ADMINISTERED Medication Instructions Date of Administration Dosage Notes LEFT C5/6 and C6/7 Facet Injections 01/13/2024 Progress Notes * ALBINONILDAJosep:[birth year] (53 yo M)Acc No.[id number]:01/13/2024 Progress Notes Patient: Josep YOST Provider: Thomas Hernandez DO :1970 Age:53 Y Sex:Male Date:01/13/2024 Address:[address] [place] [address] Subjective: * Chief Complaints: * WC--OK PER Maryellen Jaime/ Dr. Saulo Winter/ LEFT C5/6 and C6/7 Facet (s) * HPI: Follow-up Questionnaire: Pain Evaluation This patient encounter was conducted at the [facility]. The patient completed a questionnaire on the progress that has been made since the last office visit. This form was reviewed and the responses are included in this progress note.. Location of pain: neck, shoulder, shoulder blade. Onset of pain: months ago. Average Pain Since Last Visit on Scale of 0 to 10: 6. Number describing interference w/enjoyment of life: 10- completely interfered. Relief from Injections/Medications: e - I am no better at all. No relief at all.. Improvement in functional ability: e - I still cannot do anything I want to do or go to work because the pain is still too severe.. Level of Pain on 1-10 Scale w/ 10 being most severe- TODAY 7. Level of Pain on 1-10 Scale w/ 10 being most severe- LEAST 4. Level of Pain on 1-10 Scale w/ 10 being most severe- WORST 10. Pain Level on 1-10 Scale w/ 10 being most severe- OVERALL 6. Words that best describe the pain: shooting, aching, sharp. Duration of pain: very variable. Aggravating/Associated factors of pain: coughing, exercise, walking, lying down, stress/fatigue, sexual activity, standing, sitting, moving from sitting to standing. The Pain is Associated with: tingling. This 53-year-old tgfjx-oken-aeuvboae white male presents to the pain clinic today upon referral from Dr. Saulo Winter, with request for left C5/6 and C6/7 facet joint injections with fluoroscopy. I last saw this gentleman on 12/22/2023 and provided left C5/6 and C6/7 selective epidural steroid injections however he achieved only very modest, 15%, improvement. He describes predominantly left-sided neck and periscapular pain with occasional radiation into the lateral aspect of his left arm. Patient underwent left shoulder rotator cuff repair May 2023. He sustained a work- related injury 03/15/2023 as previously described. He has not undergone previous cervical spinal surgery. Medical history includes depression/anxiety. He smokes (1) pack cigarettes per day. He indicates allergy to penicillin. I nhi study [facility] cervical spine 11/23/2023 revealed grossly normal spinal cord signal. Moderate left-sided C4/5 foraminal stenosis. Spur-disc complex C5/6 with mild to moderate canal and severe bilateral foraminal encroachment. Left C6/7 paracentral protrusion/extrusion with severe canal and mild left-sided foraminal encroachment. C7/T1 segment normal. * ROS: Pain Management ROS: Patient Denies: GENERAL: weight or appetite changes, fever, chills, [...] constipation, diarrhea, blood in stools, nausea/vomiting. Patient Denies: NEUROLOGIC headaches, dizziness, falling, seizures, numbness, tremor. Patient Denies: ENDOCRINE hot and cold flashes. Patient Denies: HEMATOLOGICAL easy bruisability, difficulty in clotting the blood. Patient Denies: JOINTS joint or muscle limitation and pain other than the present illness. Patient Reports: PSYCHIATRIC anxiety. Patient Denies: PSYCHIATRIC: depression, mood swings. Patient Denies: SKIN lacerations, abrasions, postules, nodules, tumors, breast changes. * Medical History: * Surgical History: No Surgical History documented. * Hospitalization/Major Diagno stic Procedure: No Hospitalization History. * Family History: Siblings: diabetes. Father: prostate cancer, diabetes. Mother: . * Social History: Education: How far did you get in your education?: trade school. * Medications: None * Allergies: Penicillinno[Allergies Verified] Objective: * Vitals: Temp:98.6F, HR:80/min, BP:137/77mm Hg, Wt:165lbs, BMI:23.67Index, Ht: 70 in, RR:18/min, Ht-cm: 177.8 cm, Wt-k.84 kg. * Examination: DGS: Follow-up exam elements: General The patient appeared in no distress. The patient is alert and oriented to time, place, and person. Neck Normal head position. Provocation of symptoms with extension and rotation with sidebending to the left side and relative palliation with moderate degree of flexion. Mild tenderness persists along left cervical paraspinal and trapezius musculature. Overlying skin appears intact.. Neurologic Patient is right-hand dominant. He again demonstrates very subtle weakness left triceps power, nondominant side. He denies areas of persistent sensory loss in the upper extremities. DTRs +1 bilateral biceps, triceps and brachioradialis. Spurling's at least equivocally positive left side only. He does not describe signs/symptoms of cervical myelopathy. Assessment: * Assessment: 1. Cervical spondylosis with radiculopathy - M47.22 (Primary) 2. Herniated nucleus pulposus, C6-7 left - M50.223 Plan: * Treatment: * Procedures: Left C5/6 and C6/7 facet joint injections with fluoroscopy After signing consent, patient was taken to procedure area where he was placed supine on fluoroscopically compatible table. Monitors were applied consisting of automatic blood pressure cuff and pulse oximeter. No sedation was administered and no IV established. With head turned to the right, left side of neck was prepped with Betadine solution allowed to dry on the skin. Sterile drapes were applied and aseptic technique observed. Using left oblique fluoroscopic imaging, the left C5/6 and C6/7 facet joints were identified and overlying skin at each site anesthetized with 0.25% preservative-free bupivacaine via 27-gauge needle. 25-gauge 3.5 inch spinal needles placed using posterolateral approaches into the left C5/6 and C6/7 facet joints. After negative aspiration for blood, CSF or joint fluid, 0.5 mL volume was deposited into each joint consisting of 0.25% preservative-free bupivacaine with 2 mg preservative free and particulate free dexamethasone. [place] withdrawn. No complications encountered. Prep was wiped from the skin and latex free Band-Aid placed over puncture sites. He was transported to recovery area where ice pack was applied over injection site. He was observed for short while before being discharged in satisfactory condition. At discharge, he noted complete relief of presenting pain. Please refer to clinical notes for specific pain scores. * Therapeutic Injections: LEFT C5/6 and C6/7 Facet Injections given by Thomas Hernandez DO * Procedure Codes: LEFT C5/6 and C6/7 Facet Injections * Preventive Medicine: PQRS: PQRS G8420:Normal BMI - f/u plan not required., G8428: Current medication with name, dosage, frequency, or route NOT documented, not given - performance NOT met., 4004F:Patient screened for tobacco use and identified as a user and received intervention.. Oswestry Score: Oswestry Score 22. * Images: * Sign off status: Completed true * Provider: Thomas Hernandez, DO Date: 01/13/2024 History and Physical Notes * HPI (History of Present Illness) Category Sub-Category Detail Notes Category Not es Follow-up Questionnaire Average Pain Since Last Visit on Scale of 0 to 10: 6 This 53-year-old kdhcx-sgic-kbzwpuhh white male presents to the pain clinic today upon referral from Dr. Saulo Winter, with request for left C5/6 and C6/7 facet joint injections with fluoroscopy. I last saw this gentleman on 12/22/2023 and provided left C5/6 and C6/7 selective epidural steroid injections however he achieved only very modest, 15%, improvement. He describes predominantly left-sided neck and periscapular pain with occasional radiation into the lateral aspect of his left arm. Patient underwent left shoulder rotator cuff repair May 2023. He sustained a work-related injury 03/15/2023 as previously described. He has not undergone previous cervical spinal surgery. Medical history includes depression/anxiety. He smokes (1) pack cigarettes per day. He indicates allergy to penicillin. Imaging study MRI cervical spine 11/23/2023 revealed grossly normal spinal cord signal. Moderate left-sided C4/5 foraminal stenosis. Spur-disc complex C5/6 with mild to moderate canal and severe bilateral foraminal encroachment. Left C6/7 paracentral protrusion/extrusion with severe canal and mild left-sided foraminal encroachment. C7/T1 segment normal. Number describing interferen ce w/enjoyment of life: 10- completely interfered Relief from Injections/Medications: e - I am no better at all. No relief at all. Improvement in functional ability: e - I still cannot do anything I want to do or go to work because the pain is still too severe. Pain Evaluation This patient encount er was conducted at the [facility]. The patient completed a questionnaire on the progress that has been made since the last office visit. This form was reviewed and the responses are included in this progress note. Onset of pain: months ago Location of pain: neck, shoulder, shou lder blade Duration of pain: very variable Words that best describe the pain: shoot ing, aching, sharp Aggravating/Associated factors of pain: coughing, exercise, walking, lying down, stress/fatigue, sexual activity, standing, sitting, moving from sitting to standing Level of Pain on 1-10 Scale w/ 10 being most severe- TODAY 7 Level of Pain on 1-10 Scale w/ 10 being most severe- LEAST 4 Level of Pain on 1-10 Scale w/ 10 being most severe- WORST 10 Pain Level on 1-10 Scale w/ 10 being most severe- OVERALL 6 The Pain is Associated with: tingling Examination Category Sub-Category Detail Notes Category Not es DGS: Follow-up exam elements General The patient appeared in no distress. The patient is alert and oriented to time, place, and person Neck Normal head position . Provocation of symptoms with extension and rotation with sidebending to the left side and relative palliation with moderate degree of flexion. Mild tenderness persists along left cervical paraspinal and trapezius musculature. Overlying skin appears intact. Neurologic Patient is right-leblanc d dominant. He again demonstrates very subtle weakness left triceps power, nondominant side. He denies areas of persistent sensory loss in the upper extremities. DTRs +1 bilateral biceps, triceps and brachioradialis. Spurling's at least equivocally positive left side only. He does not describe signs/symptoms of cervical myelopathy
--- OUTSIDE RECORDS SUMMARY | 2024-10-24 01:10 | XMS_ITS ---
Author Organization [facility] [place] Address [address] [place] [address] Care Team Providers Care Agricultural Extension Educator Name Role Phone Thomas Hernandez [phone] Encounters Encounter Location Date Provider Diagnosis [facility] [address] [place] [address] 12/21/2023 Thomas Hernandez PLAN OF TREATMENT No Information Progress Notes * Josep YOSTDOB: [birth year] (53 yo M)Acc No.[id number]:12/21/2023 Patient: Josep YOST :1970 Age:53 Y Sex:Male Address:[address] [place] [address] * true * Date:
--- OUTSIDE RECORDS SUMMARY | 2024-10-24 01:10 | XMS_ITS | Clinical Summary ---
Author Organization [address] Address [address] [place] [address] Care Team Providers Care Generating Station Mechanic Name Role Phone Kodi Naidu MD Primary Care Provider + [phone] Manasa Barnett MD Unavailable [phone] Allergies Active Allergy Reactions Criticality Noted Date Comments Penicillins Unknown 01/07/2015 Medications cyclobenzaprine (FLEXERIL) 10 mg tablet TAKE 1 TABLET BY MOUTH THREE TIMES A DAY NEEDED FOR MUSCLE SPASM 04/02/2020 Active diclofenac (CATAFLAM) 50 mg tablet Take 50 mg by mouth 2 (two) times a day 04/02/2020 Active ketoconazole (NIZORAL) 2 % cream APPLY TO AFFECTED AREA TWICE A DAY 04/02/2020 Active sulfamethoxazol e-trimethoprim (BACTRIM DS) 800-160 mg per tablet Take 1 tablet by mouth every 12 (twelve) hours 05/09/2020 Active Tobradex ophthalmic ointment APPLY TO EACH EYELID 3 TIMES DAILY SPACED APART EVENLY WHILE AWAKE 04/02/2020 Active erythromycin (ILOTYCIN) ophthalmic ointment Apply to left eye nightly 3.5 g 3 07/17/2020 Active triamcinolone (KENALOG) 0.1 % cream Apply twice daily to rash on shoulders. 80 g 1 02/17/2022 Active Active Problems No known active problems Surgical History Surgery Date Site/Laterality Comments MOHS SURGERY LASIK KNEE SURGERY HERNIA REPAIR Medical History Medical History Date Comments Personal history of other ma lignant neoplasm of skin History of basal cell carcin kya - (Added by TW Conv) Basal cell carcinoma Broken arm Family History Medical History Relation Name Comments Diabetes Brother Diabetes Father Diabetes Other Relation Name Status Comments Brother Father Other Social History Tobacco Use Types Packs/Day Years Used Date Smoking Tobacco: Every Day Sex and Gender Information Value Date Recorded Sex Assigned at Not on file Legal Sex Male 8:42 AM DIRECTOR OF FIELD COORDINATION Gender Identity Not on file Sexual Orientation Not on file Obstetrics History Last Filed Vital Signs Vital Sign Reading Time Taken Comments Blood Pressure 121/82 04/04/2019 7:14 AM CDT Pulse 83 04/04/2019 7:13 AM CDT Temperature - - Respiratory Rate - - Oxygen Saturation 97% 04/04/2019 7:13 AM CDT Inhaled Oxygen Concentration - - Weight - - Height - - Body Mass Index - - Plan of Treatment Health Maintenance Due Date Last Done Comments Colon Cancer Screening-Colonoscopy 1970 Depression Screening 1970 Hepatitis C Screening 1970 Prostate Cancer Screening-PSA 1970 DTaP/Tdap/Td Vaccine (1 - Tdap) 1981 Hepatitis B Screening 02/27/1988 Regular Well Visit/Exam 18-64 02/27/1988 Pneumococcal vaccine <65 (1 of 2 - PCV) 1989 Zoster Vaccine (1 of 2) 02/27/2020 Influenza Vaccine (#1) 2024 [facility] [id number] [address] Odor Resistant Bedding OOS Care Teams Generating Station Mechanic Relationship Specialty Start Date End Date Kodi Naidu MD PCP - General 11/25/16 Manasa Barnett MD [address] [place] [id number] Referring Physician Dermatology 07/15/20
--- OUTSIDE RECORDS SUMMARY | 2024-10-24 01:10 | XMS_ITS | Patient Health Summary ---
Author Organization [facility] Address [address] [facility] [place] [address] Care Team Providers Care Plugger Man Name Role Phone Kodi Naidu MD Primary Care Provider [phone] Note from [facility],non-owned Affiliates and Associated Physician Practices is amultiple site organization consisting of ambulatory clinics and hospital sitesin [place], [place], [place] and [place]. This disclosure is being madepursuant to the Care Everywhere program and may not contain all information available regarding this patient. Last updated 18.[facility] Allergies * Penicillins Medications * Be aware that medications may not be up to date on this document. Alwaysverify current medications with the patient. * naproxen (NAPROSYN) 500 MG tablet(Started 03/22/2017) Take 1 Tab by mouth 2 times daily as needed for Pain Social History Tobacco Use Types Packs/Day Years [...] Mass Index 23.68 03/02/2022 12:36 PM CDT Procedures * ED LACERATION REPAIR(Performed 03/02/2022) Performed for Facial laceration, initial encounter * XR NASAL BONES(Performed 03/02/2022) Performed for Injury of nose, initial encounter * ED LACERATION REPAIR(Performed 03/22/2017) Performed for Laceration of left ring finger without foreign body, nail damage status unspecified, initial encounter * ED GENERAL PROCEDURE(Performed 03/22/2017) Performed for Subungual hematoma of finger of left hand, initial encounter * XR HAND LEFT 3VW OR MORE(Performed 03/22/2017) Performed for Hand injury, left, initial encounter Results * Laceration Repair (03/02/2022 7:30 PM CDT) Narrative Misael Madrid, - 03/02/2022 7:30 PM CDT Dianelys Givens APRN-CNP 03/02/2022 7:31 PM Laceration Repair Date/Time: 03/02/2022 7:30 PM Performed by: Dianelys Givens APRN-CNP Authorized by: Phi Reynolds MD Consent: Consent obtained: Verbal Consent given by: Patient Laceration details: Location: Face Face location: Nose Length (cm): 1.7 Treatment: Area cleansed with: Povidone-iodine and saline Skin repair: Repair method: Sutures Suture size: 6-0 Wound skin closure material used: Vicryl. Suture technique: Running Number of sutures: 5 Approximation: Approximation: Close Repair type: Repair type: Simple Post-procedure details: Dressing: Open (no dressing) Procedure completion: Tolerated well, no immediate complications Phi Reynolds MD PROCEDURE/MINOR S URGICAL ORDERABLES * XR NASAL BONES (03/02/2022 3:01 PM CDT) Anatomical Region Laterality Modality Head Radiographic Solange ging 03/02/2022 3:25 PM CDT Impressions 03/02/2022 3:26 PM CDT No nasal bone fracture. No radiopaque foreign body. *Reading Radiologist: Kwasi Long on 03/02/2022 at 3:26 PM Narrative 03/02/2022 3:26 PM CDT PROCEDURE TITLE: XR NASAL BONES*[id number] DATE: 03/02/2022 2:45 PM RELEVANT COMPARISON: No relevant available comparison. HISTORY: Laceration to bridge of nose after struck at work today FINDINGS: Imaged paranasal sinuses appear clear. Margins of the orbits appear intact. There is no evidence of a radiopaque foreign body. There is no nasal bone fracture. Procedure Note Kwasi Long MD - 03/02/2022 PROCEDURE TITLE: XR NASAL BONES*[id number] DATE: 03/02/2022 2:45 PM RELEVANT COMPARISON: No relevant available comparison. HISTORY: Laceration to bridge of nose after struck at work today FINDINGS: Imaged paranasal sinuses appear clear. Margins of the orbits appear intact. There is no evidence of a radiopaque foreign body. There is no nasal bone fracture. IMPRESSION No nasal bone fracture. No radiopaque foreign body. *Reading Radiologist: Kwasi Long on 03/02/2022 at 3:26 PM Dianelys Givens PROGRAM/MUSIC DIRECTOR-[facility] DIAGNOSTIC IMAGING ORDERABLES * ED LACERATION REPAIR (03/22/2017 9:30 PM CDT) Narrative Olinda Veliz MD - 03/22/2017 9:30 PM CDT Olinda Veliz MD 03/22/2017 9:30 PM Laceration Repair Date/Time: 03/22/2017 5:46 AM Performed by: OLINDA VELIZ Authorized by: OLINDA VELIZ Consent: Verbal consent obtained. Risks and benefits: risks, benefits and alternatives were discussed Consent given by: patient Patient understanding: patient states understanding of the procedure being performed Patient consent: the patient's understanding of the procedure matches consent given Procedure consent: procedure consent matches procedure scheduled Imaging studies: imaging studies available Required items: required blood products, implants, devices, and special equipment available Body area: upper extremity Location details: left ring finger Foreign bodies: no foreign bodies Tendon involvement: none Nerve involvement: none Vascular damage: no Sedation: Patient sedated: no Preparation: Patient was prepped and draped in the usual sterile fashion. Irrigation solution: saline Amount of cleaning: standard Debridement: none Degree of undermining: none Skin closure: glue Approximation: close Approximation difficulty: simple Dressinx4 sterile gauze Patient tolerance: Patient tolerated the procedure well with no immediate complications Comments: Glue used to close left 4th finger laceration. Olinda Veliz MD PROCEDURE/MINOR HARRIET GICAL ORDERABLES * ED GENERAL PROCEDURE (03/22/2017 9:30 PM CDT) Narrative Olinda Veliz MD - 03/22/2017 9:30 PM CDT Olinda Veliz MD 03/22/2017 9:30 PM Trephination of a Subungual Hematoma Date/Time: 03/22/2017 5:43 AM Performed by: OLINDA VELIZ Authorized by: OLINDA VELIZ Consent: Verbal consent obtained. Local anesthesia used: no Anesthesia: Local anesthesia used: no Sedation: Patient sedated: no Patient tolerance: Patient tolerated the procedure well with no immediate complications Comments: Subungual hematoma drained by trephination. Olinda Veliz MD PROCEDURE/MINOR HARRIET GICAL ORDERABLES * XR HAND 3+ VW LEFT (03/22/2017 4:49 AM CDT) Anatomical Region Laterality Modality Wrist / Hand Radiographic Solange ging 03/22/2017 9:15 AM CDT Impressions 03/22/2017 9:16 AM CDT No displaced fracture-dislocation. Narrative 03/22/2017 9:16 AM CDT History: trauma COMPARISON: None FINDINGS: Frontal, lateral and oblique views of the left hand demonstrate no evidence of a displaced fracture or dislocation. The bones are well-mineralized. Minimal soft tissue deformity at the tip of the fourth digit noted. Procedure Note Gracie Nicolas MD - 03/22/2017 History: trauma COMPARISON: None FINDINGS: Frontal, lateral and oblique views of the left hand demonstrate no evidence of a displaced fracture or dislocation. The bones are well-mineralized. Minimal soft tissue deformity at the tip of the fourth digit noted. IMPRESSION No displaced fracture-dislocation. Olinda Veliz MD DIAGNOSTIC IMAGING ORDERABLES Care Teams Plugger Man Relationship Specialty Start Date End Date Kodi Naidu MD [address] [place] [address] PCP - General 09/26/21
--- OUTSIDE RECORDS SUMMARY | 2024-10-24 01:10 | XMS_ITS | Clinical Summary ---
Author Organization [facility] Address [address] [place] [address] Care Team Providers Care Clay Puddler Name Role Phone Kodi Naidu MD Primary Care Provider [phone] Allergies Active Allergy Reactions Criticality Noted Date Comments Penicillins Rash Low 09/22/2022 Medications albuterol (PROVENTIL,VENTOL IN) 0.63 mg/3 mL Solution for Nebulization Take 0.63 mg by inhalation one time only. Active sulfamethoxazole- trimethoprim (BACTRIM) 400-80 mg tablet Take 1 Tablet by mouth 2 times daily. Active sulfamethoxazole- trimethoprim (BACTRIM DS) 800-160 mg tablet Take 1 Tablet by mouth 2 times daily. 42 Tablet 3 Active tamsulosin (FLOMAX) 0.4 mg capsule TAKE 1 CAPSULE (0.4 MG) BY MOUTH DAILY WITH SUPPER. 30 Capsule 3 Active tamsulosin (Flomax) 0.4 mg capsule Take 1 Capsule (0.4 mg) by mouth daily with supper. 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 Gender Identity Not on file Sexual Orientation Not on file Last Filed Vital Signs Vital Sign Reading Time Taken Comments Blood Pressure 134/80 12/03/2022 12:53 PM CDT Pulse - - Temperature 36.7 C (98 F) 12/03/2022 12:53 PM CDT Respiratory Rate - - Oxygen Saturation - - Inhaled Oxygen Concentration - - Weight 74.8 kg (165 lb) 12/03/2022 12:53 PM CDT Height 177.8 cm (5' 10 ) 12/03/2022 12:53 PM CDT Body Mass Index 23.68 12/03/2022 12:53 PM CDT Plan of Treatment Health Maintenance Due Date Last Done Comments PNEUMOCOCCAL VACCINE 0-49 YEARS (1 of 2 - PCV) 976 DTAP/TDAP/TD VACCINES (1 - Tdap) 1989 HEPATITIS B VACCINES (1 of 3 - 19+ 3-dose series) 02/07 COLORECTAL SCREENING 2015 Colorectal Cancer Screening 2015 FIT-DNA Q 3 years 2015 FIT/FOBT Q 1 year 2015 Flex Sig/CT Colonography Q 5 years 2015 ZOSTER VACCINE (1 of 2) 02/27/2020 INFLUENZA VACCINE (#1) [address] [employer] CHO[employer] Care Teams Clay Puddler Relationship Specialty Start Date End Date Kodi Naidu MD [address] [place] [address] PCP - General Family Practice 10/13/22
--- OUTSIDE RECORDS SUMMARY | 2024-10-24 01:10 | XMS_ITS | Referral Summary ---
Author Organization [facility] Address [address] [facility] [place] [address] Care Team Providers Care Custom Leather Products Maker Name Role Phone Kodi Naidu MD Primary Care Provider [phone] Source Comments [facility],non-owned Affiliates and Associated Physician Practices is amultiple site organization consisting of ambulatory clinics and hospital sitesin [place], [place], [place] and [place]. This disclosure is being madepursuant to the Care Everywhere program and may not contain all informatio navailable regarding this patient. Last updated 18.[facility] Allergies Active Allergy Reactions Criticality Noted Date [...] 03/02/2022 12:36 PM CDT Plan of Treatment Not on file Care Teams Custom Leather Products Maker Relationship Specialty Start Date End Date Kodi Naidu MD [address] [place] [address] PCP - General 09/26/21
--- OUTSIDE RECORDS SUMMARY | 2024-10-24 01:10 | XMS_ITS | Referral Summary ---
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
[2024-10-24 01:11] VITALS: BP 149/86; PULSE 86; RESP 20; TEMP 36.4; O2SAT 97
--- NOTE | 2024-10-24 05:49 | ED_ITS ---
HPI - General Adult General Chief complaint: Extremity Injury, Lower Stated complaint: R knee injury Time Seen by Provider: 10/24/24 05:36 History of Present Illness HPI narrative: Patient 54-year-old gentleman who presents emergency department chief complaint of right knee pain. Patient reports that he has been having difficulty with ambulation after a knee injury on the left side at work the patient states that he has been favoring his right knee tonight he had a pop in the right knee and reports he is having pain with ambulation. Related Data Allergies Allergy/AdvReac Type Severity Reaction Status Date / Time Penicillins Allergy Unknown Rash Verified 03/28/24 16:13 Review of Systems Review of Systems: A 10 system review of systems was completed on the patient and is negative except for what is stated in the HPI. Nursing and ancillary documentation was reviewed. [facility] Past Medical History Medical History BMI 23.0-23.9, adult Screening for malignant neoplasm of prostate BMI 24.0-24.9, adult Tobacco abuse Eye lesion Surgical History Surgical History History of repair of rotator cuff Family History Family History Father Malignant neoplasm of prostate Family history of diabetes mellitus in first degree relative Mother Sibling Hypertension Sibling Cancer Hypertension Sibling Family history of diabetes mellitus in first degree relative Other Diabetes mellitus Social History Social History Smoking packs per day: 1 Smoking cigarettes per day: 20.0 Years smoked: 30 Smoking pack-years: 30.00 Smoking status: Current every day smoker Tobacco type: cigarettes Second hand tobacco smoke exposure: Yes Alcohol intake: never Substance use: never Substance use type: does not use Living arrangements: alone Occupation/Education: occupation Additional occupation/education comments: [employer] Gender identity (if verbalized by the patient): Male Spiritual care concerns: No Exam Narrative: GENERAL: Well-appearing, well-nourished, and in no acute distress. HEAD: Normocephalic, atraumatic. EYES: PERRLA and EOMI. ENT: Nares clear, no rhinorrhea or epistaxis. Mucous membranes moist. NECK: Supple. CHEST: Clear to auscultation. No respiratory distress. HEART: Regular rate and rhythm. No murmur heard. Normal peripheral pulses. ABDOMEN: Soft, nontender, nondistended, normal active bowel sounds. EXTREMITIES: Normal range of motion tenderness palpation the right knee. No edema. SKIN: Warm, dry, no rash. NEURO: No focal deficits. Alert and oriented x3. PSYCH: Normal mood and affect. Course Vital Signs Vital signs: Vital Signs Temperature 36.4 C 10/24/24 01:11 Pulse Rate 86 10/24/24 01:11 Respiratory Rate 20 10/24/24 01:11 Blood Pressure 149/86 H 10/24/24 01:11 Pulse Oximetry 97 10/24/24 01:11 Oxygen Delivery Room Air 10/24/24 01:11 Temperature 36.4 C 10/24/24 01:11 Pulse Rate 86 10/24/24 01:11 Respiratory Rate 20 10/24/24 01:11 Blood Pressure 149/86 H 10/24/24 01:11 Pulse Oximetry 97 10/24/24 01:11 Oxygen Delivery Room Air 10/24/24 01:11 Medical Decision Making MDM Narrative Medical decision making narrative: Differential diagnosis includes fracture, sprain Patient placed in knee immobilizer referred to Orthopedic Vital Signs Vital Signs: Vital Signs Temperature 36.4 C 10/24/24 01:11 Pulse Rate 86 10/24/24 01:11 Respiratory Rate 20 10/24/24 01:11 Blood Pressure 149/86 H 10/24/24 01:11 Pulse Oximetry 97 10/24/24 01:11 Oxygen Delivery Room Air 10/24/24 01:11 Temperature 36.4 C 10/24/24 01:11 Pulse Rate 86 10/24/24 01:11 Respiratory Rate 20 10/24/24 01:11 Blood Pressure 149/86 H 10/24/24 01:11 Pulse Oximetry 97 10/24/24 01:11 Oxygen Delivery Room Air 10/24/24 01:11 Discharge Plan Discharge Clinical Impression: Right knee sprain Patient Disposition: Home, Self-Care Condition: Stable Instructions: Antibiotic Form, Knee Sprain (ED), Knee Immobilizer (ED) Patient Language: Citizen Of [place] Prescriptions: New diclofenac potassium 50 mg tablet 50 mg PO TID PRN (Reason: pain) Qty: 30 0RF No Action celecoxib [Celebrex] 100 mg capsule 100 mg PO BID PRN (Reason: pain) Qty: 60 1RF tizanidine 4 mg capsule 4 mg PO TID PRN (Reason: muscle spasticity) Qty: 30 1RF Follow-up/Referrals: Jorje Ruvalcaba MD [Physician] - Kodi Naidu MD [Primary Care Provider] - Stand Alone Forms: Work/School Release IP Time of Disposition: 05:51
--- OUTSIDE RECORDS SUMMARY | 2024-10-24 05:53 | XMS_ITS | Referral Summary ---
Author Organization [facility] Address [address] [place] [address] Care Team Providers Care Rock Crusher Operator Name Role Phone Kodi Naidu MD Primary Care Provider [phone] Source Comments [facility],non-owned Affiliates and Associated Physician Practices is amultiple site organization consisting of ambulatory clinics and hospital sitesin [place], [place], [place] and [place]. This disclosure is being madepursuant to the Care Everywhere program and may not contain all informatio navailable regarding this patient. Last updated 18.[facility] [employer] Allergies Active Allergy Reactions Criticality Noted Date [...] of Treatment Not on file Care Teams Rock Crusher Operator Relationship Specialty Start Date End Date Kodi Naidu MD [address] [place] [address] PCP - General 09/26/21
--- OUTSIDE RECORDS SUMMARY | 2024-10-24 05:53 | XMS_ITS | Referral Summary ---
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
--- OUTSIDE RECORDS SUMMARY | 2024-10-24 05:53 | XMS_ITS | Clinical Summary ---
Author Organization 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 [address] PCP - General Family Practice 10/13/22
--- OUTSIDE RECORDS SUMMARY | 2024-10-24 05:53 | XMS_ITS | Clinical Summary ---
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
--- OUTSIDE RECORDS SUMMARY | 2024-10-24 05:53 | XMS_ITS | Clinical Summary ---
Author Organization [facility] [employer] Address [address] [place] [address] Care Team Providers Care Yard Clerk Name Role Phone Kodi Naidu MD Primary Care Provider Source Comments [facility] Affiliates and Associated Physician Practices is amultiple site organization consisting of ambulatory clinics and hospital sitesin [place], [place], [place]. This disclosure is being madepursuant to the Care Everywhere program and may not contain all information available regarding this patient. Last updated 18.[facility] [employer] Allergies Active Allergy Reactions Criticality Noted Date [...] age to complete this topic Care Teams Yard Clerk Relationship Specialty Start Date End Date Kodi Naidu MD [address] [place] [place] [address] PCP - General 09/26/21
--- OUTSIDE RECORDS SUMMARY | 2024-10-24 05:53 | XMS_ITS | Patient Health Summary ---
Author Organization [facility] Address [address] [facility] [place] [address] Care Team Providers Care Carton Machine Operator Name Role Phone Kodi Naidu MD Primary Care Provider Note from [facility],non-owned Affiliates and Associated Physician Practices is amultiple site organization consisting of ambulatory clinics and hospital sitesin [place], [place], [place] and [place]. This disclosure is being madepursuant to the Care Everywhere program and may not contain all information available regarding this patient. Last updated 18.[facility] Allergies * Penicillins Medications * Be aware [...] 3:26 PM CDT PROCEDURE TITLE: XR NASAL BONES*[id number] DATE: 03/02/2022 2:45 PM RELEVANT COMPARISON: No relevant available comparison. HISTORY: Laceration to bridge of nose after struck at work today FINDINGS: Imaged paranasal sinuses appear clear. Margins of the orbits appear intact. There is no evidence of a radiopaque foreign body. There is no nasal bone fracture. Procedure Note Kwasi Long MD - 03/02/2022 PROCEDURE TITLE: XR NASAL BONES*[id number] DATE: 03/02/2022 2:45 PM RELEVANT COMPARISON: No [...] on 03/02/2022 at 3:26 PM Dianelys Givens FINISHING AREA SUPERVISOR-[facility] DIAGNOSTIC IMAGING ORDERABLES * ED LACERATION [...] Veliz MD DIAGNOSTIC IMAGING ORDERABLES Care Teams Carton Machine Operator Relationship Specialty Start Date End Date Kodi Naidu MD [address] [place] [address] PCP - General 09/26/21
== END 2024-10-24 06:22 | disposition home or self-care (01) ==
PROVIDERS: Emergency Provider Emergency Medicine; PCP Family Medicine
DX: S83.91XA Sprain of unspecified site of right knee, initial encounter (principal); F17.210 Nicotine dependence, cigarettes, uncomplicated; X58.XXXA Exposure to other specified factors, initial encounter
CPT/HCPCS: 73562; 99283

== ENCOUNTER 2024-11-08 06:35 | Outpatient (CLI) | payer BC, SELFPAY ==
--- NOTE | ~2024-11-08 | MR_ITS ---
MRI of the right knee Clinical history: Instability Technique: Coronal proton density and proton density-weighted images, sagittal proton-density and T2 fat-sat images, and axial proton-density fat-saturated images were acquired. Findings: Anterior and posterior cruciate ligaments are intact. Medial collateral ligament and the la teral collateral ligament, but are intact. Popliteus tendon is intact. There is oblique/flap tear of the posterior horn of the medial meniscus, probably extending into the body segment. No lateral meniscal tear evident. There is moderate chondromalacia the femoral trochlea. There is mild to moderate chondromalacia of th e medial joint line. Bone marrow signals are unremarkable. Extensor mechanism is intact. There is minimal joint effusion with minimal Ibrahim's cyst. Impression: Oblique/flap tear of the posterior horn of the medial meniscus, probably extending into the body segm ent. 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 Minimal joint effusion and minimal Ibrahim's cyst. Reviewed, dictated and finalized at location . Impression: Oblique/flap tear of the posterior horn of the medial meniscus, probably extend ing into the body segment. 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 Minimal joint effusion and minimal Ibrahim's cyst.
--- NOTE | ~2024-11-08 | XR_ITS ---
Lumbosacral Spine: AP and lateral views Clinical History: Pain Findings: The normal lordotic curve is maintained. The vertebral bodies and posterior elements are i ntact. There is mild degenerative disc narrowing at L4-L5 and L5-S1. There is mild facet arthropathy. . The sacroiliac joints are normally outlined. Impression: Mild degenerative spondylosis. Reviewed, dictated and finalized at location . Impression: Mild degenerative spondylosis.
--- OUTSIDE RECORDS SUMMARY | 2024-11-08 06:38 | XMS_ITS | Continuity of Care Document ---
Author Organization [facility] Address [address] [place] [address] [place] [address] Phone Care Team Providers Care Panel Cutter Name Role Phone Villalpando OD, Lamine Unavailable Unavailable Procedures Procedure Date Office/outpatient Visit, Est Remove Foreign Body From Eye Advance Directives Directive Yes / No Effective Date File Name No Information Encounters Encounter Description Practice Location Reason(s) For Visit Diagnoses Date Provider Providers Copied on Encounter Office/outpat ient Visit, Est [facility], [address] [place] [address] [address], [place], [place], [id number], [place] tel:[phone] [facility] [place] No Information 1-200 8 Villalpando OD Lamine. [address] [place] , [address], [place], [address], [place]. tel:[phone] [facility], [address] [place] [address] [address], [place], [place], [id number], [place] tel:[phone] [facility] [place] No Information 8-200 8 Villalpando OD Lamine. [address], [address], [place], [address], [place]. tel:[phone] Family History Family Member Type Diagnosis Age At Onset No Information Payers Payer name Insurance type Covered constitution party ID Authoriza tion(s) [facility] [place] [facility] [place] [id number] Social History Type Description Quantity Date Captured Comments Sex Male Smoking Status No Information Chief Complaint And Reason For Visit No Information Reason For Referral Reason For Referral No Information History Of Present Illness Encounter Date Complaint History Of Prese nt Illness No Information Functional Status Date Functional Assessmen t No Information Instructions Date Instruction Additional Infor mation No Information Assessments Type Assessment Date No Information Patient Care Teams Name Effective Dates (start - stop) Status Members No Information
--- OUTSIDE RECORDS SUMMARY | 2024-11-08 06:38 | XMS_ITS ---
Author Organization [facility] Address [address] [place] [address] Care Team Providers Care Rack Puller Name Role Phone Thomas Hernandez Unavailable [phone] ALLERGIES Allergen (clinical drug ingredient) Drug/Non Drug Allergy documented on EMR Reaction Allergy Type Onset Date Status Penicillin Unknown Drug Allergy Active REASON FOR VISIT WC--OK PER Tash Garcia/ Dr. 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[id number]:12/22/2023 Progress Notes Patient: Josep YOST Provider: Thomas Hernandez DO :1970 Age:53 Y Sex:Male Date:12/22/2023 Address:[address] [place] [address] Subjective: * Chief Complaints: * WC--OK PER Tash Garcia/ Dr. Saulo Winter/ [employer] and LEFT C5/6 & C6/7 SESI (s) [...] it. tylenol. Oswestry Score 15. This 53-year-old UYKWS-bybv-tnemaesu white male presents to the pain clinic today upon referral from Dr. Saulo Winter, his orthopedic spine surgical lead, with specific request for left C5/6 and C6/7 selective epidural steroid injections utilizing transforaminal approaches with fluoroscopy. This gentleman describes a work-related injury that occurred on 03/15/2023. 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 I nhi study M [place] cervical spine without contrast 11/23/2023 revealed normal [...] mg preservative free and particulate free dexamethasone. [place] withdrawn tips intact. No complications encountered. Prep [...] pain first begin? months ago This 53-year-old DLVUB-zeki-uwitxzbj white male presents to the pain clinic today upon referral from Dr. Saulo Winter, his orthopedic spine surgical lead, with specific request for left C5/6 and C6/7 selective epidural steroid injections utilizing transforaminal approaches with fluoroscopy. This gentleman describes a work-related injury that occurred on 03/15/2023. 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
--- OUTSIDE RECORDS SUMMARY | 2024-11-08 06:38 | XMS_ITS | Clinical Summary ---
Author Organization [facility] Address [address] [facility] [place] [address] Care Team Providers Care Caramel Candy Maker Name Role Phone Kodi Naidu MD Primary Care Provider [phone] Source Comments [facility] Affiliates and Associated Physician Practices is amultiple site organization consisting of ambulatory clinics and hospital sitesin [place], [place], [place] and [place]. This disclosure is being madepursuant to the Care Everywhere program and may not contain all information available regarding this patient. Last updated 18.[facility] Allergies Active Allergy Reactions Criticality Noted Date [...] age to complete this topic Care Teams Caramel Candy Maker Relationship Specialty Start Date End Date Kodi Naidu MD [address] [place] [address] PCP - General 09/26/21
--- OUTSIDE RECORDS SUMMARY | 2024-11-08 06:38 | XMS_ITS | Patient Health Record ---
Author Organization [facility] [place] Address [address] [place] [address] Care Team Providers Care Extraction Supervisor Name Role Phone Thomas Hernandez Unavailable [phone] ALLERGIES Allergen (clinical drug ingredient) Drug/Non Drug [...] (M47.22) Active confirmed Cervical spondylosis without myelopathy (613696549) Problem Cervical radiculopathy (M54.12) Active confirmed Cervical radiculopathy (08812126) Problem 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) Active confirmed Spinal stenosis in cervical region (disorder) (01981937) Problem Herniated nucleus pulposus, C6-7 left (M50.223) Active confirmed Displacement of cervical intervertebral disc without myelopathy (55734100) VITAL SIGNS Heart Rate 80 /min 01/13/2024 Temperature 98.6 degrees Fahrenheit 01/13/2024 Respiratory Rate 18 /min 01/13/2024 Blood pressure diastolic 77 mm Hg 01/13/2024 Height 70 in 01/13/2024 Blood pressure systolic 137 mm Hg 01/13/2024 Weight 165 lbs 01/13/2024 BMI 23.67 kg/m2 01/13/2024 Encounters Encounter Location Date Provider Diagnosis [facility] [address] [place] [address] 12/22/2023 Thomas Hernandez Cervical radiculopat hy M54.12 ; Cervical spondylosis with radiculopathy M47.22 ; Herniated nucleus pulposus, C6-7 left M50.223 and Foraminal stenosis of cervical region M99.81 [facility] [address] [place] [address] 01/13/2024 Thomas Hernandez Cervical spondylosis with radiculopathy M47.22 and Herniated nucleus pulposus, C6-7 left M50.223 [facility] [address] [place] [address] 12/21/2023 Thomas Hernandez ASSESSMENTS Encounter Date Diagnosis [...]
--- OUTSIDE RECORDS SUMMARY | 2024-11-08 06:38 | XMS_ITS | Clinical Summary ---
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 [address] PCP - General Family Practice 10/13/22
--- OUTSIDE RECORDS SUMMARY | 2024-11-08 06:39 | XMS_ITS | Continuity of Care Document ---
Author Organization [employer] [place] Address [address] [facility] [address] [place] [address] Phone Care Team Providers Care It Architecture Consultant Name Role Phone Kwasi Villarreal Unavailable Unavailable Procedures Procedure Date Therapeutic Activities Neuromuscular Re-Ed Therapeutic Exercise Manual Therapy Hot or Cold Pack PT Evaluation Moderate Complexity Therapeutic Activities Neuromuscular Re-Ed Therapeutic Exercise Therapeutic Activities Neuromuscular Re-Ed Therapeutic Exercise Manual Therapy Therapeutic Activities Neuromuscular Re-Ed Therapeutic Exercise Manual Therapy PT Re-evaluation Therapeutic Activities Neuromuscular Re-Ed Therapeutic Exercise Manual Therapy Therapeutic Activities Neuromuscular Re-Ed Therapeutic Exercise Manual Therapy Neuromuscular Re-Ed Therapeutic Exercise Manual Therapy Therapeutic Activities Neuromuscular Re-Ed Therapeutic Exercise Manual Therapy Therapeutic Activities Neuromuscular Re-Ed Therapeutic Exercise Manual Therapy Therapeutic Activities Neuromuscular Re-Ed Therapeutic Exercise Manual Therapy PT Re-evaluation Therapeutic Activities Neuromuscular Re-Ed Therapeutic Exercise Manual Therapy Therapeutic Activities Neuromuscular Re-Ed Therapeutic Exercise Manual Therapy Therapeutic Activities Neuromuscular Re-Ed Therapeutic Exercise Manual Therapy PT Evaluation Moderate Complexity Therapeutic Activities Neuromuscular Re-Ed Therapeutic Exercise Manual Therapy Therapeutic Activities Neuromuscular Re-Ed Therapeutic Exercise PASTRY COOK APPRENTICE Acute Therapeutic Activities Neuromuscular Re-Ed Therapeutic Exercise Therapeutic Activities Neuromuscular Re-Ed Therapeutic Exercise Therapeutic Activities Neuromuscular Re-Ed Therapeutic Exercise Therapeutic Activities Neuromuscular Re-Ed Therapeutic Exercise Manual Therapy Therapeutic Activities Neuromuscular Re-Ed Therapeutic Exercise Manual Therapy Therapeutic Activities Neuromuscular Re-Ed Therapeutic Exercise Manual Therapy Hot or Cold Pack PASTRY COOK APPRENTICE Acute Therapeutic Activities Neuromuscular Re-Ed Therapeutic Exercise Manual Therapy Hot or Cold Pack Therapeutic Activities Neuromuscular Re-Ed Therapeutic Exercise Manual Therapy Therapeutic Activities Neuromuscular Re-Ed Therapeutic Exercise Manual Therapy Hot or Cold Pack Therapeutic Activities Neuromuscular Re-Ed Therapeutic Exercise Manual Therapy Hot or Cold Pack Therapeutic Activities Therapeutic Exercise Neuromuscular Re-Ed Hot or Cold Pack Therapeutic Activities Neuromuscular Re-Ed Therapeutic Exercise Manual Therapy Hot or Cold Pack Therapeutic Activities Neuromuscular Re-Ed Therapeutic Exercise Manual Therapy Hot or Cold Pack Therapeutic Activities Neuromuscular Re-Ed Manual Therapy Therapeutic Exercise Therapeutic Activities Neuromuscular Re-Ed Therapeutic Exercise Manual Therapy Therapeutic Activities Neuromuscular Re-Ed Therapeutic Exercise Therapeutic Activities Therapeutic Exercise Neuromuscular Re-Ed Therapeutic Activities Neuromuscular Re-Ed Therapeutic Exercise Manual Therapy Hot or Cold Pack Therapeutic Activities Neuromuscular Re-Ed Therapeutic Exercise Manual Therapy Hot or Cold Pack Therapeutic Activities Neuromuscular Re-Ed Therapeutic Exercise Hot or Cold Pack Therapeutic Activities Neuromuscular Re-Ed Therapeutic Exercise Hot or Cold Pack Therapeutic Activities Neuromuscular Re-Ed Therapeutic Exercise Therapeutic Activities Neuromuscular Re-Ed Therapeutic Exercise Hot or Cold Pack Progress Note Therapeutic Activities Neuromuscular Re-Ed Therapeutic Exercise Hot or Cold Pack Therapeutic Activities Therapeutic Exercise Neuromuscular Re-Ed Therapeutic Activities Neuromuscular Re-Ed Therapeutic Exercise Hot or Cold Pack Therapeutic Activities Neuromuscular Re-Ed Therapeutic Exercise Hot or Cold Pack Progress Note Therapeutic Activities Neuromuscular Re-Ed Therapeutic Exercise Manual Therapy Hot or Cold Pack Therapeutic Activities Neuromuscular Re-Ed Therapeutic Exercise Manual Therapy Therapeutic Activities Neuromuscular Re-Ed Therapeutic Exercise Manual Therapy Hot or Cold Pack Therapeutic Activities Neuromuscular Re-Ed Therapeutic Exercise Manual Therapy Hot or Cold Pack Therapeutic Activities Neuromuscular Re-Ed Therapeutic Exercise Manual Therapy Hot or Cold Pack Therapeutic Activities Neuromuscular Re-Ed Therapeutic Exercise Manual Therapy Hot or Cold Pack Progress Note Therapeutic Activities Neuromuscular Re-Ed Therapeutic Exercise Hot or Cold Pack Manual Therapy Therapeutic Activities Neuromuscular Re-Ed Therapeutic Exercise Manual Therapy Hot or Cold Pack Electrical Stimulation Therapeutic Activities Neuromuscular Re-Ed Manual Therapy Therapeutic Exercise Hot or Cold Pack Electrical Stimulation Therapeutic Activities Neuromuscular Re-Ed Therapeutic Exercise Manual Therapy Electrical Stimulation Hot or Cold Pack Progress Note Therapeutic Activities Neuromuscular Re-Ed Therapeutic Exercise Manual Therapy Electrical Stimulation Hot or Cold Pack Therapeutic Activities Neuromuscular Re-Ed Therapeutic Exercise Manual Therapy Hot or Cold Pack Electrical Stimulation Therapeutic Activities Neuromuscular Re-Ed Therapeutic Exercise Manual Therapy Hot or Cold Pack Electrical Stimulation Therapeutic Activities Neuromuscular Re-Ed Therapeutic Exercise Manual Therapy Hot or Cold Pack Electrical Stimulation Therapeutic Activities Neuromuscular Re-Ed Therapeutic Exercise Manual Therapy PT Evaluation Moderate Complexity Neuromuscular Re-Ed Therapeutic Exercise PT Re-evaluation Therapeutic Activities Neuromuscular Re-Ed Therapeutic Exercise Manual Therapy Hot or Cold Pack Therapeutic Activities Neuromuscular Re-Ed Therapeutic Exercise Manual Therapy Therapeutic Activities Neuromuscular Re-Ed Therapeutic Exercise Manual Therapy Hot or Cold Pack Therapeutic Activities Neuromuscular Re-Ed Therapeutic Exercise Manual Therapy Hot or Cold Pack Therapeutic Activities Neuromuscular Re-Ed Therapeutic Exercise Manual Therapy Hot or Cold Pack Therapeutic Activities Neuromuscular Re-Ed Therapeutic Exercise Manual Therapy Hot or Cold Pack Therapeutic Activities Neuromuscular Re-Ed Therapeutic Exercise Manual Therapy Hot or Cold Pack PT Evaluation Moderate Complexity Therapeutic Activities Neuromuscular Re-Ed Therapeutic Exercise Hot or Cold Pack Advance Directives Directive Yes / No Effective Date File Name No Information Encounters Encounter Description Practice Location Reason(s) For Visit Diagnoses Date Provider Providers Copied on Encounter [facility] [facility] [address], [place], [place], [id number], [place] tel:[phone] [place] No Information Jaziel Villalpando. [address] [facility], [address], [place], [address], [place]. tel:[phone] Referring Provider: Kodi Naidu, [address] [place], [address]. tel:[phone] [facility], [place], [place], [address], [place] tel:[phone] [place] No Information 8 5 Jaziel Villalpando. [address] [facility], [address], [place], [address], [place]. tel:[phone] Referring Provider: Kodi Naidu, [address] [facility], [place], [address]. tel:[phone] [facility], [place], [place], [address], [place] tel:[phone] [place] [facility] No Information Jan- 7 4 Federica Don. . Referring Provider: Saulo Winter, [address], [place], [address]. tel:[phone] [facility], [place], [place], [address], [place] tel:[phone] [place] [facility] No Information Jan- 4- 4 Federica Don. . Referring Provider: Saulo Winter [address], [place], [address]. tel:[phone] [facility], [place], [place], [address], [place] tel:[phone] [place] [facility] No Information Jan- 2- 4 Federica Don. . Referring Provider: Saulo Winter [address], [place], [address]. tel:[phone] [facility], [place], [place], [address], [place] tel:[phone] [place] [facility] No Information Jan- 0-202 4 Federica Don. . Referring Provider: Saulo Winter [address], [place], [address]. tel:[phone] [facility], [place], [place], [address], [place] tel:[phone] [place] [facility] No Information Wing-0 7- 4 Federica Don. . Referring Provider: Saulo Winter, [address], [place], [address]. tel:[phone] [facility], [place], [place], [address], [place] tel:[phone] [place] [facility] No Information Wing-0 5- 4 Federica Don. . Referring Provider: Saulo Winetr [address], [place], [address]. tel:[phone] [facility], [place], [place], [address], [place] tel:[phone] [place] [facility] No Information Wing-0 3- 4 Federica Don. . Referring Provider: Saulo Winter [address], [place], [address]. tel:[phone] [facility], [place], [place], [address], [place] tel:[phone] [facility] No Information December-3 - 4 Federica Don. . Referring Provider: Saulo Winter [address], [place], [address]. tel:[phone] [facility], [place], [address], [place] tel:[phone] [place] [facility] No Information December-2 4 Federica Don. . Referring Provider: Saulo Winter, [address], [place], [address]. tel:[phone] [facility], [place], [place], [address], [place] tel:[phone] [place] [facility] No Information December-2 - 4 Federica Don. . Referring Provider: Saulo Winter [address], [place], [address]. tel:[phone] [facility], [place], [address], [place] tel:[phone] [facility] On[facility] No Information December- 2- 4 Federica Ochoa. . Referring Provider: Saulo Winter, [address], [place], [address]. tel:[phone] [facility], [address], [place], [place], [address], tel:[phone] [facility] No Information December-2 0- 4 Federica Don. . Referring Provider: Saulo Winter, [address], [place], [address]. tel:[phone] [facility], [place], [place], [address], tel:[phone] [place] No Information Oct-0 4 Muehl Kwasi. [address] [place] [address], [address], [place], [place], [facility], . tel:[phone] Referring Provider: Paco Gomez, [address], [place], [address]. tel:[phone] [facility] [facility], [place], [place], [address], tel:[phone] [place] No Information 0 4 Muehl Kwasi. [address] [place] [address], [address], [place], [facility], . tel:[phone] Referring Provider: Paco Gomez, [address], [place], [address]. tel:[phone] [facility], [place], [place], [address], [place] tel:[phone] [place] No Information 4 Muehl Kwasi. [address] [place] [address], [address], [place], [facility], . tel:[phone] Referring Provider: Paco Gomez, [address], [place], [address]. tel:[phone] [place] [address] [address], [place], [place], [address], tel:[phone] [place] No Information 4 Muehl Kwasi. [address] [place] [address], [address], [place], [facility], . tel:[phone] Referring Provider: Paco Gomez, [address], [place], [address]. tel:[phone] [place] [address] [address], [place], [place], [address], tel:[phone] [place] No Information 4 Muehl Kwasi. [address] [place] [address], [address], [place], [facility], . tel:[phone] Referring Provider: Paco Gomez, [address], [place], [address]. tel:[phone] [place], [place] [address], [place], [place], [address], tel:[phone] [place] No Information 4 Muehl Kwasi. [address] [place] [address], [address], [place], [facility], . tel:[phone] Referring Provider: Paco Gomez, [address], [place], [address]. tel:[phone] [place], [place] [address], [place], [place], [address], tel:[phone] [place] No Information 4 Muehl Kwasi. [address] [place] [address], [address], [place], [facility], . tel:[phone] Referring Provider: Paco Gomez, [address], [place], [address]. tel:[phone] [place], [place] [address], [place], [place], [address], tel:[phone] [place] No Information Feb1 3-202 4 Muehl Kwasi. [address] [place] [address], [address], [place], [facility], . tel:[phone] Referring Provider: Paco Gomez, [address], [place], [address]. tel:[phone] [place] [address] [address], [place], [place], [address], tel:[phone] [place] No Information Feb-0 9-202 4 Muehl Kwasi. [address] [place] [address], [address], [place], [facility], . tel:[phone] Referring Provider: Paco Gomez, [address], [place], [address]. tel:[phone] [address] [place] [address], [place], [place], [address], tel:[phone] [place] No Information Feb-0 8-202 4 Muehl Kwasi. [address] [place] [address], [address], [place], [facility], . tel:[phone] Referring Provider: Paco Gomez, [address], [place], [address]. tel:[phone] [place], [place] [address]e [facility], [place], [place], [address], tel:[phone] [place] No Information Feb-0 6- 4 Muehl Kwasi. [address] [place] [address], [address], [place], [facility], [place]. tel:[phone] Referring Provider: Paco Gomez, [address], [place], [address]. tel:[phone] [place] [address], [place], [place], [address], tel:[phone] [place] No Information Feb-0 2-202 4 Muehl Kwasi. [address] [place] [address], [facility] [address], [place], [facility], . tel:[phone] Referring Provider: Paco Gomez, [address], [place], [address]. tel:[phone] [place], [place] [address], [place], [place], [address], tel:[phone] [place] No Information 4 Muehl Kwasi. [address] [place] [address], [address], [place] [address], . tel:[phone] Referring Provider: Paco Gomez, [address], [place], [address]. tel:[phone] [place], [place] [address], [place], [place], [address], tel:[phone] [place] No Information 4 Muehl Kwasi. [address] [place] [address], [address] [address], . tel:[phone] Referring Provider: Paco Gomez, [address], [place], [address]. tel:[phone] [phone] [place], [place] [address], [place], [place], [address], tel:[phone] [place] No Information 4 Muehl Kwasi. [address] [place] [address], [address] [address], . tel:[phone] Referring Provider: Paco Gomez, [address], [place], [address]. tel:[phone] [place], [place] [address], [place], [place], [address], tel:[phone] [place] No Information 4 Muehl Kwasi. [address] [place] [address], [address] [address], . tel:[phone] Referring Provider: Paco Gomez, [address], [place], [address]. tel:[phone] [place], [place] [address], [place], [place], [address], tel:[phone] [place] No Information 4 Muehl Kwasi. [address] [place] [address], [address], [place], [facility], . tel:[phone] Referring Provider: Paco Gomez, [address], [place], [address]. tel:[phone] [place], [place] [address], [place], [place], [address], tel:[phone] [place] No Information 4 Muehl Kwasi. [address] [place] [address], [address], [place], [facility], . tel:[phone] Referring Provider: Paco Gomez, [address], [place], [address]. tel:[phone] [place], [place] [address], [place], [place], [address], tel:[phone] [place] No Information 4 Muehl Kwasi. [address] [place] [address], [address], [place], [facility], . tel:[phone] Referring Provider: Paco Gomez, [address], [place], [address]. tel:[phone] [place], [place] [address], [place], [place], [address], tel:[phone] [place] No Information 4 Muehl Kwasi. [address] [place] [address], [address], [place], [facility], . tel:[phone] Referring Provider: Paco Gomez, [address], [place], [address]. tel:[phone] [place], [place] [address], [place], [place], [address], tel:[phone] [place] No Information 4 Muehl Kwasi. [address] [place] [address], [address], [place], [address], [place]. tel:[phone] Referring Provider: Paco Gomez, [address], [place], [address]. tel:[phone] [place], [place] [address], [place], [place], [address], tel:[phone] [place] No Information 4 Delcorinaano Bird. . Referring Provider: Paco Gomez, [address], [place], [address]. tel:[phone] [place] [address] [address], [place], [place], [address], tel:[phone] [place] No Information 4 Muehl Kwasi. [address] [place] [address], [address], [place], [facility], . tel:[phone] Referring Provider: Paco Gomez, [address], [place], [address]. tel:[phone] [address] [place] [address] [address], [place], [address], [place] tel:[phone] [place] No Information 4 Muehl Kwasi. [address] [place] [address], [address], [place], [facility], [place]. tel:[phone] Referring Provider: Paco Gomez, [address], [place], [address]. tel:[phone] [place], [place] [address], [place], [place], [address], [place] tel:[phone] [place] No Information 4 Muehl Kwasi. [address] [place] [address], [address], [place], [facility], [place]. tel:[phone] Referring Provider: Paco Gomez, [address], [place], [address]. tel:[phone] [place] [address], [address] [place], [place] [address], [place], [place], [address], tel:[phone] [place] No Information 3 Muehl Kwasi. [address] [place] [address], [address], [place], [facility], . tel:[phone] Referring Provider: Paco Gomez, [address], [place], [address]. tel:[phone] [place], [place] [address], [place], [place], [address], tel:[phone] [place] No Information 3 Muehl Kwasi. [address] [place] [address], [address], [place], [facility], . tel:[phone] Referring Provider: Paco Gomez, [address], [place], [address]. tel:[phone] [place] [address]e [address], [place], [place], [address], tel:[phone] [place] No Information 3 Muehl Kwasi. [address] [place] [address], [address], [place], [facility], . tel:[phone] Referring Provider: Paco Gomez, [address], [place], [address]. tel:[phone] [place], [place] [address], [place], [place], [address], tel:[phone] [place] No Information 3 Muehl Kwasi. [address] [place] [address], [address], [facility], . tel:[phone] Referring Provider: Paco Gomez, [address], [place], [address]. tel:[phone] [place], [place] [address], [place], [place], [address], tel:[phone] [place] No Information Jul-1 5-202 3 Muehl Kwasi. [address] [place] [address], [address], [place], [facility], . tel:[phone] Referring Provider: Paco Gomez, [address], [place], [address]. tel:[phone] [place] [address], [place], [place], [address], tel:[phone] [place] No Information Dec-1 2-202 3 Muehl Kwasi. [address] [place] [address], [address], [place], [facility], [place]. tel:[phone] Referring Provider: Paco Gomez, [address], [place], [address]. tel:[phone] [place] [address], [place], [place], [address], tel:[phone] [place] No Information Dec-0 7-202 3 Muehl Kwasi. [address] [place] [address], [address], [place], [facility], [place]. tel:[phone] Referring Provider: Paco Gomez, [address], [place], [address]. tel:[phone] [place] [address], [place], [place], [address], tel:[phone] [place] No Information Dec-0 5-202 3 Muehl Kwasi. [address] [place] [address], [address], [place], [facility], . tel:[phone] Referring Provider: Paco Gomez, [address], [place], [address]. tel:[phone] [place] [address], [id number], tel:[phone] [place] No Information Dec-0 1-202 3 Muehl Kwasi. [address] [place] [address], [address], [place], [facility], . tel:[phone] Referring Provider: Paco Gomez, [address], [place], [address]. tel:[phone], [place], [place], [address], [place] tel:[phone] [place] No Information 3 Muehl Kwasi. [address] [place] [address], [address], [place], [facility], . tel:[phone] Referring Provider: Paco Gomez, [address], [place], [address]. tel:[phone] [place] [address] [address], [place], [address], [place] tel:[phone] [place] No Information 3 Muehl Kwasi. [address] [place] [address], [address], [place], [facility], . tel:[phone] Referring Provider: Paco Gomez, [address], [place], [address]. tel:[phone] [address] [place] [address] [address], [place], [place], [address], [place] tel:[phone] [place] No Information 3 Muehl Kwasi. [address] [place] [address], [address], [facility] [facility], . tel:[phone] Referring Provider: Paco Gomez, [address], [place], [address]. tel:[phone] [place] [address] [address], [place], [place], [id number], [place] tel:[phone] [place] No Information 3 Muehl Kwasi. [address] [place] [address], [address], [place], [place], [facility], [place]. tel:[phone] Referring Provider: Paco Gomez, [address], [place], [address]. tel:[phone] [place] [address] [address], [place], [place], [id number], [place] tel:[phone] [place] No Information 0 3 Muehl Kwasi. [address] [place] [address], [address], [place], [place], [facility], . tel:[phone] Referring Provider: Paco Gomez, [address], [place], [address]. tel:[phone] [place] [address] 300, [place], [place], [id number], tel:[phone] [place] No Information 0 3 Muehl Kwasi. [address] [place] [address], [address], [place], [place], [facility], . tel:[phone] Referring Provider: Paco Gomez, [address], [place], [address]. tel:[phone] [place] [address], [id number], tel:[phone] [place] No Information 0 3 Muehl Kwasi. [address] [place] [address], [address], [place], [facility], . tel:[phone] Referring Provider: Paco Gomez [address], [place], [address]. tel:[phone] [place], [place] [address] [place] [address], [id number], tel:[phone] [place] No Information 3 Muehl Kwasi. [address] [place] [address], [address], [place], [place], [facility], . tel:[phone] Referring Provider: Paco Gomez [address], [place], [address]. tel:[phone] [place], [place] [address], [place], [place], [id number], tel:[phone] [place] No Information 2 3 Modglin Kel. . Referring Provider: Paco Gomez [address], [place], [address]. tel:[phone], [place], [place], [id number], [place] tel:[phone] [place] No Information 3 Jaziel Villalpando. [address] [facility], [address], [place], [place], [facility], [place]. tel:[phone] Referring Provider: Paco Gomez, [address], [place], [address]. tel:[phone], [place], [place], [id number], [place] tel:[phone] [place] [facility] No Information 3 Federica Don. . Referring Provider: Paco Gomez, [address], [place], [address]. tel:[phone] [place] [address] [address], [place], [place], [id number], [place] tel:[phone] [place] [facility] No Information 3 Federica Don. . Referring Provider: Paco Gomez, [address], [place], [address]. tel:[phone] [place] [address] [address], [place], [place], [id number], [place] tel:[phone] [place] [facility] No Information 3 Federica Don. . Referring Provider: Paco Gomez, [address], [place], [address]. tel:[phone], [place], [place], [id number], [place] tel:[phone] [place] [facility] No Information 3 Federica Don. . Referring Provider: Paco Gomez, [address], [place], [address]. tel:[phone] [facility] [address], [place], [place], [id number], tel:[phone] [place] [facility] No Information 3 Federica Ochoa. . Referring Provider: Paco Gomez, [address], [place], [address]. tel:[phone] [facility] [address] [place] [address] 300, [place], [place], [id number], tel:[phone] [place] [facility] No Information 3 Federica Ochoa. . Referring Provider: Paco Gomez, [address], [place], [address]. tel:[phone] [facility] [address] [place] [address] 300, [place], [place], [id number], tel:[phone] [place] [facility] No Information 3 Federica Ochoa. . Referring Provider: Paco Gomez, [address], [place], [address]. tel:[phone] [address], [place], [place], [id number], tel:[phone] [place] [facility] No Information 3 Federica Ochoa. . Referring Provider: Paco Gomez, [address], [place], [address]. tel:[phone] Family History Family Member Type Diagnosis Age At Onset No Information Payers Payer name Insurance type Covered libertarian ID Emy pastor(s) [facility] [id number] Social History Type Description Quantity Date Captured Comments Sex Male Smoking Status No Information Chief Complaint And Reason For Visit No Information Reason For Referral Reason For Referral No Information Plan Of Treatment Date Type Action Status Goal Tobacco cessation counseling completed Goal Tobacco Cessation Counseling completed Goal Tobacco cessation counseling completed Goal Tobacco Cessation Counseling completed Goal Tobacco cessation counseling completed Goal Tobacco Cessation Counseling completed May-20-2024 Goal Tobacco cessation counseling completed Goal Tobacco Cessation Counseling completed Goal Tobacco cessation counseling completed Goal Tobacco Cessation Counseling completed Goal Tobacco Cessation Counseling completed Goal Tobacco Cessation Counseling completed Goal Tobacco cessation counseling completed Appointment Josep Finley BOOKED Appointment Josep Finley BOOKED Appointment Josep Finley BOOKED Appointment Josep Finley BOOKED History Of Present Illness Encounter Date Complaint History Of Prese nt Illness No Information Functional Status Date Functional Assessmen t No Information Instructions Date Instruction Additional Infor mation No Information Assessments Type Assessment Date No Information Patient Care Teams Name Effective Dates (start - stop) Status Members No Information
--- OUTSIDE RECORDS SUMMARY | 2024-11-08 06:39 | XMS_ITS | Continuity of Care Document ---
Author Organization [facility] Address [address] [place] [address] Phone Care Team Providers Care Automatic Drill Operator Name Role Phone Billy AUTO BODY REPAIR TECHNICIAN, Nichol Unavailable Unavailable Advance Directives Directive Yes / No Effective Date File Name No Information Encounters Encounter Description Practice Location Reason(s) For Visit Diagnoses Date Provider Providers Copied on Encounter [facility], [address], [place], [place], [id number], tel:[phone] [facility] No Information Billy Gandara. [address], [place] [address] [address], [place], [place], [id number]. tel:[phone] Family History Family Member Type Diagnosis Age At Onset No Information Payers Payer name Insurance type Covered democrat ID Authoriza tion(s) No Information Social History Type Description Quantity Date Captured [...]
--- OUTSIDE RECORDS SUMMARY | 2024-11-08 06:39 | XMS_ITS | Clinical Summary ---
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
--- OUTSIDE RECORDS SUMMARY | 2024-11-08 06:39 | XMS_ITS | Referral Summary ---
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
--- OUTSIDE RECORDS SUMMARY | 2024-11-08 06:39 | XMS_ITS ---
Author Organization [facility] Address [address] [place] [place] [address] Care Team Providers Care Tanning Solution Maker Name Role Phone Thomas Hernandez [phone] Encounters Encounter Location Date Provider Diagnosis [place] [facility] [address] [place] [address] 12/21/2023 Thomas Hernandez PLAN OF TREATMENT No Information Progress Notes * Josep YOSTDOB: [birth year] (53 yo M)Acc No.[id number]:12/21/2023 Patient: Josep YOST :1970 Age:53 Y Sex:Male Address:[address] [place] [address] * true * Date:
--- OUTSIDE RECORDS SUMMARY | 2024-11-08 06:39 | XMS_ITS ---
Author Organization [facility] Address [address] [facility] [place] [address] Care Team Providers Care Stone Carver Name Role Phone HernandezThomas Unavailable [phone] ALLERGIES Allergen (clinical drug ingredient) Drug/Non Drug Allergy documented on EMR Reaction Allergy Type Onset Date Status Penicillin Unknown Drug Allergy Active REASON FOR VISIT WC--OK PER Maryellen Jaime/ Dr. Saulo Winter/ LEFT C5/6 and C6/7 Facet (s) VITAL SIGNS Temperature 98.6 degrees Fahrenheit 01/13/20 24 Heart Rate 80 /min 01/13/2024 Blood pressure systolic 137 mm Hg 01/13/20 24 Blood pressure diastolic 77 mm Hg 024 Weight 165 lbs 01/13/2024 BMI 23.67 kg/m2 01/13/2024 Height 70 in 01/13/2024 Respiratory Rate 18 /min 01/13/2024 Encounters Encounter Location Date Provider Diagnosis [place] [facility] [address] [place] [address] 01/13/2024 Thomas Hernandez Cervical spondylosis with radiculopathy [...] Progress Notes * ALBINONILDAJosep:[birth year] (53 yo M)Acc No.[id number]:01/13/2024 Progress Notes Patient: Josep YOST Provider: Thomas Hernandez DO :1970 Age:53 Y Sex:Male Date:01/13/2024 Address:[address] [place] [address] Subjective: * Chief Complaints: * WC--OK PER Maryellen Jaime/ Dr. Saulo Winter/ LEFT C5/6 and C6/7 Facet (s) * HPI: Follow-up Questionnaire: Pain Evaluation This patient encounter was [facility] [place] [facility] The patient completed a questionnaire on the [...] Pain is Associated with: tingling. This 53-year-old nobcu-zlxa-wfyoitby white male presents to the pain clinic [...] indicates allergy to penicillin. I nhi study [facility] cervical spine 11/23/2023 revealed grossly normal spinal [...] mg preservative free and particulate free dexamethasone. [place] withdrawn. No complications encountered. Prep was wiped [...] of 0 to 10: 6 This 53-year-old gqxap-hvbk-otchuuyg white male presents to the pain clinic [...] patient encount er was conducted at the [facility]. The patient completed a questionnaire on the [...]
== END 2024-11-08 06:36 | disposition home or self-care (01) ==
PROVIDERS: PCP Family Medicine
DX: S83.241A Other tear of medial meniscus, current injury, right knee, initial encounter (principal); X58.XXXA Exposure to other specified factors, initial encounter; M47.816 Spondylosis without myelopathy or radiculopathy, lumbar region; M47.817 Spondylosis without myelopathy or radiculopathy, lumbosacral region
CPT/HCPCS: 72100; 73721

== ENCOUNTER 2024-12-15 11:46 | Outpatient (CLI) | payer BC, SELFPAY ==
--- OUTSIDE RECORDS SUMMARY | 2024-12-15 11:51 | XMS_ITS | Patient Health Record ---
Author Organization [facility] Address [address] [facility] [place] [address] Care Team Providers Care Customer Energy Specialist Name Role Phone Thomas Hernandez Unavailable [phone] ALLERGIES Allergen (clinical drug ingredient) Drug/Non Drug [...] (M47.22) Active confirmed Cervical spondylosis without myelopathy (212338121) Problem Cervical radiculopathy (M54.12) Active confirmed Cervical radiculopathy (57868761) Problem 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) Active confirmed Spinal stenosis in cervical region (disorder) (64463959) Problem Herniated nucleus pulposus, C6-7 left (M50.223) Active confirmed Displacement of cervical intervertebral disc without myelopathy (53487774) VITAL SIGNS Heart Rate 80 /min 01/13/2024 Temperature 98.6 degrees Fahrenheit 01/13/2024 Respiratory Rate 18 /min 01/13/2024 Blood pressure diastolic 77 mm Hg 01/13/2024 Height 70 in 01/13/2024 Blood pressure systolic 137 mm Hg 01/13/2024 Weight 165 lbs 01/13/2024 BMI 23.67 kg/m2 01/13/2024 Encounters Encounter Location Date Provider Diagnosis [place] [facility] [address] [place] [address] 12/22/2023 Thomas Hernandez Cervical radiculopat hy M54.12 ; Cervical spondylosis with radiculopathy M47.22 ; Herniated nucleus pulposus, C6-7 left M50.223 and Foraminal stenosis of cervical region M99.81 [place] [address] [place] [address] 01/13/2024 Thomas Hernandez Cervical spondylosis with radiculopathy M47.22 and Herniated nucleus pulposus, C6-7 left M50.223 [facility] [address] [place] [address] 12/21/2023 Thomas Hernandez ASSESSMENTS Encounter Date Diagnosis [...]
--- NOTE | 2024-12-15 11:52 | ECG_ITS ---
Test Date: 2024-12-15 11:57:31 Measurements Intervals [facility] Rate: 75 P: 58 VT: 188 QRS: -16 QRSD: 97 T: 53 QT: 363 QTc: 408 Interpretive Statements SINUS RHYTHM POSSIBLE RIGHT VENTRICULAR CONDUCTION DELAY [RSR (QR) IN V1/V2] SEPTAL MYOCARDIAL INFARCTION [40+ ms Q WAVE IN V1/V2], OF INDETERMINATE AGE No previous ECG available for comparison Electronically Signed On 12-15-2024 12:18:52 CDT by Adwoa Berry M.D.
--- OUTSIDE RECORDS SUMMARY | 2024-12-15 11:52 | XMS_ITS | Clinical Summary ---
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 [address] PCP - General Family Practice 10/13/22
--- OUTSIDE RECORDS SUMMARY | 2024-12-15 11:52 | XMS_ITS ---
Author Organization [facility] Address [address] [place] [address] Care Team Providers Care Top Stitcher Name Role Phone Thomas Hernandez Unavailable [phone] ALLERGIES Allergen (clinical drug ingredient) Drug/Non Drug Allergy documented on EMR Reaction Allergy Type Onset Date Status Penicillin Unknown Drug Allergy Active REASON FOR VISIT WC--OK PER Tash Garcia/ Dr. Saulo Winter/ ASSURANCE MANAGER INSURANCE and LEFT C5/6 & C6/7 SESI (s) [...] Cervical radiculopathy (M54.12) Active confirmed Cervical radiculopathy (10130518) Problem Cervical spondylosis with radiculopathy (M47.22) Active confirmed Cervical spondylosis without myelopathy (596347090) Problem Herniated nucleus pulposus, C6-7 left (M50.223) Active confirmed Displacement of cervical intervertebral disc without myelopathy (59696931) Problem 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) Active confirmed Spinal stenosis in cervical region (disorder) (81699299) VITAL SIGNS Temperature 98.1 degrees Fahrenheit 12/22/19 24 Heart Rate 78 /min 12/22/2023 Blood pressure systolic 139 mm Hg 12/22/19 24 Blood pressure diastolic 83 mm Hg 024 Weight 165 lbs 12/22/2023 BMI 23.67 kg/m2 12/22/2023 Height 70 in 12/22/2023 Respiratory Rate 18 /min 12/22/2023 Encounters Encounter Location Date Provider Diagnosis [place] [facility] [address] [place] [address] 12/22/2023 Thomas Hernandez Cervical radiculopat hy M54.12 [...] * Josep YOST Karley:[birth year] (53 yo M)Acc No.[id number]:12/22/2023 Progress Notes Patient: Josep YOST Provider: Thomas Hernandez DO :1970 Age:53 Y Sex:Male Date:12/22/2023 Address:[address] [place] [address] Subjective: * Chief Complaints: * WC--OK PER Tash Garcia/ Dr. Saulo Winter/ ASSURANCE MANAGER INSURANCE and LEFT C5/6 & C6/7 SESI (s) [...] it. tylenol. Oswestry Score 15. This 53-year-old JZCKQ-wwoq-ppfudwxb white male presents to the pain clinic today upon referral from Dr. Saulo Winter, his orthopedic spine surgical device sales representative, with specific request for left C5/6 and C6/7 selective epidural steroid injections utilizing transforaminal approaches with fluoroscopy. This gentleman describes a work-related injury that occurred on 03/15/2023. 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 I nhi study [place] cervical spine without contrast 11/23/2023 revealed normal [...] mg preservative free and particulate free dexamethasone. [place] withdrawn tips intact. No complications encountered. Prep [...] pain first begin? months ago This 53-year-old YWUIX-gqia-pkdhzkwd white male presents to the pain clinic today upon referral from Dr. Saulo Winter, his orthopedic spine surgical device sales representative, with specific request for left C5/6 and C6/7 selective epidural steroid injections utilizing transforaminal approaches with fluoroscopy. This gentleman describes a work-related injury that occurred on 03/15/2023. 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
--- OUTSIDE RECORDS SUMMARY | 2024-12-15 11:52 | XMS_ITS | Clinical Summary ---
Author Organization [facility] [employer] Address [address] [place] [address] Care Team Providers Care Physical Security Engineer Name Role Phone Kodi Naidu MD Primary Care Provider Source Comments [facility] [employer],non-owned Affiliates and Associated Physician Practices is amultiple site organization consisting of ambulatory clinics and hospital sitesin [place], [place], [place] and [place]. This disclosure is being madepursuant to the Care Everywhere program and may not contain all information available regarding this patient. Last updated 18.[facility] [employer] Allergies Active Allergy Reactions Criticality Noted Date Comments Penicillins 03/22/2017 Medications * Be aware that medications may not be up to date on this document. Alwaysverify current medications with the patient. naproxen (NAPROSYN) 500 MG tablet Take 1 [...] at Not on file Legal Sex Male 3:48 AM CDT Gender Identity Not on file Sexual Orientation [...] 50+ (1 of 2 - PCV) 1989 ZOSTER VACCINE (1 of 2) 02/27/2020 COVID-19 VACCINE (1 - 2023-2 5 season) 2024 DEPRESSION SCREENING 08/09/2024 INFLUENZA VACCINE (Season Ended) 2025 HIB VACCINE Aged Out No longer eligi [...] on patient's age to complete this topic Insurance [employer] Member Subscriber Plan / Payer (Ef fective 2017-Present) Name:Josep Finley Relation to Subscriber:Self Name:Josep Finley Payer ID:Not on file Group ID:Not on file Type:Worker's Comp Address: [address] [place] [address] Care Teams Physical Security Engineer Relationship Specialty Start Date End Date Kodi Naiud MD [address] [place] [address] PCP - General 09/26/21
--- OUTSIDE RECORDS SUMMARY | 2024-12-15 11:52 | XMS_ITS | Referral Summary ---
Author Organization [address] Address [address] [place] [address] Care Team Providers Care Raiser Helper Name Role Phone Kodi Naidu MD Primary Care Provider [phone] Manasa Barnett MD Unavailable [phone] Encounters Date Type Department Care Team Description 12/11/2024 Results Follow-Up [facility] Dermatology [address] [place] [address] Outpatient Health [address] [place] [address] Roula Horan MD PhD 12/07/2024 Orders Only [facility] [address] [place] [address] Roula Horan MD PhD Neoplasm of unspecified behavior of bone, soft tissue, and skin 12/06/2024 3:00 PM CDT Office Visit [facility] Dermatology [address] [place] [address] Outpatient Health [address] [place] [address] Roula Horan MD PhD Neoplasm of unspecified behavior of bone, soft tissue, and skin (Primary Dx); Notalgia paresthetica; Dilated pore of Tony; Actinic keratosis; Telangiectasia; Seborrheic keratosis; Melanocytic nevi of trunk; Lentigines; History of nonmelanoma skin cancer from Last 3 Months Allergies Active Allergy Reactions Criticality Noted Date [...] Years Used Date Smoking Tobacco: Every Day Tobacco Cessation:Ready to Q uit: Yes; Counseling Given: Yes Sex and Gender Information Value Date Recorded Sex Assigned at Not on file 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 Gender Identity Not on file Sexual Orientation [...] - Plan of Treatment Not on file Procedures Procedure Name Priority Date/Time Associated Diagnosis Comments SURGICAL PATHOLOGY Routine 12/06/2024 12 :00 AM CDT Neoplasm of unspecified behavior of bone, soft tissue, and skin from Last 3 Months Results * Surgical pathology (12/06/2024 12:00 AM CDT) Tissue (Skin, shave biopsy) 12/06/2024 12/07/2024 8:54 AM CDT [facility] - 12/08/2024 3:48 PM CDT [facility] results best viewed via link to PDF [facility] [address] [place] [address], [address], [place] [address] [email or web address] Note to Patients: This report may contain a detailed description of human tissue sent by a health care provider to the laboratory for pathologic evaluation. The content of this report is essential for diagnosis and may provide important critical findings. This information may be unfamiliar to patients to review without a medical professional present. It is advised that the patient review this report in the presence of a health care provider who can answer questions and explain the details. FINAL REPORT Patient Information: PATIENT NAME: JOSEP YOST SEX: M : 1970 (Age: 54) Specimen Information: COLLECTED: 12/06/2024 RECEIVED: 12/07/2024 REPORTED: 12/08/2024 Submitting Physician Information: Roula Horan MD PhD [address] [place] [address] , DERMATOPATHOLOGY REPORT RESULTS DIAGNOSIS: SKIN, RIGHT POSTERIOR SHOULDER, SHAVE BIOPSY: BASAL CELL CARCINOMA, SUPERFICIAL sxt/isr By this signature, I attest that the above diagnosis is based upon my personal examination of the slides(and/or other material indicated in the diagnosis). Abigail Amarla M.D. Report Electronically Reviewed and Signed Out By Abigail Amaral M.D. 12/08/2024 15:48:42 CLINICAL INFORMATION PINK PAPULE WITH OVERLYING TELANGIECTASIAS; R/O BCC SPECIMEN DATA MICROSCOPIC DESCRIPTION: Emanating from the undersurface of the epidermis, there are aggregates of atypical basal epithelial cells with palisading of their peripheral nuclei. (C44.91) GROSS DESCRIPTION: Received in a formalin-containing bottle is a superficial fragment of pink-soriano, finely scaling, and semi-translucent skin measuring 0.9 by 0.9 by 0.1 cm. The surgical margin is inked blue. The specimen is sectioned into 4 pieces and submitted entirely in a single cassette. Due to shrinkage, measurements may be different than those at time of procedure. ag/mat ICD-9 A; ZSD.176 Clerical Data A; 52240 The characteristics of special, immunohistochemical, and immunofluorescence stains and in-situ hybridization tests performed by the [facility] were deemed acceptable in ongoing supplier quality specialist measures and in compliance with regulations drawn from the Clinical Laboratory Improvement Act sl1055 (CLIA '88). Control reactions for all stains performed were deemed adequate and appropriate by a pathologist prior to evaluation of patient tissue. Some diagnoses were rendered with the assistance of laboratory-developed tests utilizing analyte-specific reagents; the performance characteristic of these tests were determined by [facility] and are not cleared or approved by the US Food an Drug administration. Laboratory developed test may only be performed in a facility that is certified by the [facility] as a high-complexity laboratory under CLIA '88. These tests are used for clinical purposes and are not investigational. Roula Horan MD PhD LAB PATHOLOGY ORDERABLE S Final Result [facility] [address] [place] [phone] from Last 3 Months Insurance [employer] OOS Care Teams Raiser Helper Relationship Specialty Start Date End Date Kodi Naidu MD PCP - General 11/25/16 Manasa Barnett MD [address] [place] [phone] Referring Physician Dermatology 07/15/20
--- OUTSIDE RECORDS SUMMARY | 2024-12-15 11:52 | XMS_ITS ---
Author Organization [facility] [place] Address [address] [place] [address] Care Team Providers Care Sales Planning Manager Name Role Phone Thomas Hernandez [phone] Encounters Encounter Location Date Provider Diagnosis [place] [facility] [address] [place] [address] 12/21/2023 Thomas Hernandez PLAN OF TREATMENT No Information Progress Notes * Josep YOSTDOB: [birth year] (53 yo M)Acc No.[id number]:12/21/2023 Patient: Josep YOST :1970 Age:53 Y Sex:Male Address:[address] [place] [address] * true * Date:
--- OUTSIDE RECORDS SUMMARY | 2024-12-15 11:52 | XMS_ITS ---
Author Organization [facility] [place] Address [address] [place] [address] Care Team Providers Care Home Aide Name Role Phone HernandezThomas Unavailable [phone] ALLERGIES Allergen (clinical drug ingredient) Drug/Non Drug [...] 01/13/2024 Encounters Encounter Location Date Provider Diagnosis [place] [facility] [address] [facility] [place] [address] 01/13/2024 Thomas Hernandez Cervical spondylosis with radiculopathy [...] Progress Notes * ALBINONILDAJosep:[birth year] (53 yo M)Acc No.[id number]:01/13/2024 Progress Notes Patient: Josep YOST Provider: Thomas eHrnandez DO :1970 Age:53 Y Sex:Male Date:01/13/2024 Address:[address] [place] [address] Subjective: * Chief Complaints: * WC--OK PER Maryellen Jaime/ Dr. Saulo Winter/ LEFT C5/6 and C6/7 Facet (s) * HPI: Follow-up Questionnaire: Pain Evaluation This patient encounter was conducted at the [facility]. The patient completed a [...] Pain is Associated with: tingling. This 53-year-old gheod-cxnf-bjkmbbdm white male presents to the pain clinic [...] indicates allergy to penicillin. I nhi study [facility] cervical spine 11/23/2023 revealed grossly normal [...] mg preservative free and particulate free dexamethasone. [place] withdrawn. No complications encountered. Prep was wiped [...] of 0 to 10: 6 This 53-year-old raizi-huue-dhiixlyx white male presents to the pain clinic [...] patient encount er was conducted at the [facility]. The patient completed a [...]
--- OUTSIDE RECORDS SUMMARY | 2024-12-15 11:52 | XMS_ITS | Encounter Summary ---
Author Organization [facility] Address [address] [place] [address] Phone Care Team Providers Care Project Builder Name Role Phone Kodi Naidu MD Primary Care Provider [phone] Manasa Barnett MD Unavailable Encounter Details Date Type Department Care Team (Late st Contact Info) Description 12/11/2024 Results Follow-Up [facility] D[facility]at[facility] [address] [facility] Outpatient Health [address] [place] [address] Roula Horan MD PhD [address] [place], [place] [id number] Social History Tobacco Use Types Packs/Day Years Used Date Smoking Tobacco: Every Day Sex and Gender Information Value Date Recorded Sex Assigned at Not on file 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 Scheduled for EDC. documented in this encounter Plan of Treatment Not on file documented as of this encounter Visit Diagnoses Not on filedocumented in this encounter Care Teams Project Builder Relationship Specialty Start Date End Date Kodi Naidu MD PCP - General 11/25/16 Manasa Barnett MD [address] [place] [phone] Referring Physician Dermatology 07/15/20 documented as of this encounter
--- OUTSIDE RECORDS SUMMARY | 2024-12-15 11:52 | XMS_ITS | Clinical Summary ---
Author Organization [address] Address [address] [place] [address] Care Team Providers Care Crime Prevention Worker Name Role Phone Kodi Naidu MD Primary Care Provider [phone] Manasa Barnett MD Unavailable [phone] Allergies Active Allergy Reactions Criticality Noted [...] Active Active Problems No known active problems Encounters Date Type Department Care Team Description 12/11/2024 Results Follow-Up [facility] Dermatology [facility] [address] [place] [address] Roula Horan MD PhD 12/07/2024 Orders Only [facility] [address] [place] [address] Roula Horan MD PhD Neoplasm of unspecified behavior of bone, soft tissue, and skin 12/06/2024 3:00 PM CDT Office Visit [facility] Dermatology [address] [facility] [address] [place] [address] Roula Horan MD PhD Neoplasm of unspecified behavior of bone, soft tissue, and skin (Primary Dx); Notalgia paresthetica; Dilated pore of Tony; Actinic keratosis; Telangiectasia; Seborrheic keratosis; Melanocytic nevi of trunk; Lentigines; History of nonmelanoma skin cancer from Last 3 Months Surgical History Surgery Date Site/Laterality Comments MOHS [...] on file 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 Gender Identity Not on file Sexual Orientation [...] 2) 02/27/2020 Influenza Vaccine (Season Ended) 2025 Procedures Procedure Name Priority Date/Time Associated Diagnosis Comments SURGICAL PATHOLOGY Routine 12/06/2024 12 :00 AM CDT Neoplasm of unspecified behavior of bone, soft tissue, and skin from Last 3 Months Results * Surgical pathology (12/06/2024 12:00 AM CDT) Tissue (Skin, shave biopsy) 12/06/2024 12/07/2024 8:54 AM CDT [facility] - 12/08/2024 3:48 PM CDT EPIC results best viewed via link to PDF [facility] Dermatopathology [place] [address] [facility], [address], [place] [address] [email or web address] Note to Patients: This report may contain [...] Physician Information: Roula Horan MD PhD [address] [facility] [place] [address] , DERMATOPATHOLOGY REPORT RESULTS DIAGNOSIS: SKIN, RIGHT POSTERIOR SHOULDER, SHAVE BIOPSY: BASAL CELL CARCINOMA, SUPERFICIAL sxt/isr By this signature, I attest that the above diagnosis is based upon my personal examination of the slides(and/or other material indicated in the diagnosis). Abigail Amaral M.D. Report Electronically Reviewed and Signed Out [...] ag/mat ICD-9 A; ZSD.176 Clerical Data A; 11509 The characteristics of special, immunohistochemical, and immunofluorescence stains and in-situ hybridization tests performed by the [facility]at[facility] were deemed acceptable in ongoing fiberglass quality technician measures and in compliance with regulations drawn from the Clinical Laboratory Improvement Act xm5374 (CLIA '88). Control reactions for all stains performed were deemed adequate and appropriate by a pathologist prior to evaluation of patient tissue. Some diagnoses were rendered with the assistance of laboratory-developed tests utilizing analyte-specific reagents; the performance characteristic of these tests were determined by [facility] and are not cleared or approved by the US Food an Drug administration. Laboratory developed test may only be performed in a facility that is certified by the [facility] as a high-complexity laboratory under CLIA '88. These tests are used for clinical purposes and are not investigational. Roula Horan MD PhD LAB PATHOLOGY ORDERABLE S Final Result [facility]MATOPATHOLOGY CENTER [address] [place] [phone] from Last 3 Months Insurance [employer] OOS Member Subscriber Plan / Payer (Ef fective 2017-Present) Name:Josep Yost Relation to Subscriber:Self Name:Josep Yost Payer ID:[id number] (NAIC) Type:[facility] Address: [facility] [id number] [place] [id number] Care Teams Crime Prevention Worker Relationship Specialty Start Date End Date Kodi Naidu MD PCP - General 11/25/16 Manasa Barnett MD [address] [place] [phone] Referring Physician Dermatology 07/15/20
== END 2024-12-15 11:47 | disposition home or self-care (01) ==
LOC: ANHSURGERY 11:49
PROVIDERS: PCP Family Medicine; Visit Provider Orthopaedic Surgery
DX: Z01.818 Encounter for other preprocedural examination (principal); I25.2 Old myocardial infarction; F17.210 Nicotine dependence, cigarettes, uncomplicated
CPT/HCPCS: 93005

== ENCOUNTER 2024-12-25 01:26 | Day surgery (SDC) | payer BC, SELFPAY ==
[2024-12-14 09:49] VITALS: BMI 23.7
--- NOTE | 2024-12-14 10:04 | PC.NURSE ---
Report to the Outpatient Waiting Room, entrance under the green pavilion located off [facility], at time _0600_ on date _[id number]_. Planned Procedure Time: _0730_. Time changes happen often and if your time is changed the preop area will call you the afternoon before. - You and your visitor will be asked to self-screen and do not enter if you have any COVID symptoms. Please call surgeon if you need to reschedule. - A mask is optional within the hospital at this time. Patients may have clear liquids (water, carbonated beverages, clear teas, apple juice) until 3 hours prior to surgery with a maximum of 20 ounces. - No food from midnight until time of surgery and no smoking, or chewing tobacco (or any form of nicotine). No chewing gum, candy or mints. Take only the following medications with a SIP of water on the morning of surgery: __None___ DO NOT STOP ANY OF YOUR OTHER PRESCRIPTION MEDICATIONS PRIOR TO SURGERY EXCEPT THE FOLLOWING Hold all vitamins and supplements for 3 days per anesthesiologist. Medications to discontinue per physician Date to take last dose Please no make-up, nail haitian, hairspray, perfume, deodorant, or body powder the day of surgery. No jewelry (including any body piercings) or valuables the day of surgery, leave them at home. Please take a shower or bath the night before, or the morning of, surgery with an antibacterial soap. Wear comfortable, loose fitting clothing. - Jewelry must be removed prior to entering the operating room. Rings and piercings that are not removed may be cut off. - The hospital will not accept responsibility for valuables. - Please leave all valuables, including medications, at home the day of surgery. If you are going home after surgery, a licensed driver/refuse collector must drive you home. - NO public transportation without another adult if you receive anesthesia. - We recommend that an adult stay with you for 24 hours following discharge. - We also recommend that you do not drive, make important decision, drink alcoholic beverages, or take any drugs that were not prescribed by your health care provider for at least 24 hours after your discharge time. Follow any additional instructions given to you from your surgeon. Telephone instructions given to __Tom__and asked if any additional questions and then verbalized understanding. Patient advised to call surgeon office or pre surgery nurse liaison [phone] if any additional questions.
--- NOTE | 2024-12-21 08:07 | P.HP_ITS ---
H&P: HPI History of Present Illness Date/Time: 12/21/24 08:07 Chief Complaint: Patient has pain and catching of the right knee. Unfortunately has not responded to conservative treatment. Would like to consider surgical intervention. He has a meniscal tear. Would like arthroscopic intervention. Review of Systems Musculoskeletal: Musculoskeletal: Reports arthralgias, Reports joint swelling and Reports stiffness Neurologic: Reports abnormal gait PMFSH Past Medical History Medical History Prostatitis BMI 23.0-23.9, adult Screening for malignant neoplasm of prostate BMI 24.0-24.9, adult Tobacco abuse Eye lesion Surgical History Surgical History History of repair of rotator cuff Family History Family History Father Malignant neoplasm of prostate Family history of diabetes mellitus in first degree relative Mother Sibling Hypertension Sibling Cancer Hypertension Sibling Family history of diabetes mellitus in first degree relative Other Diabetes mellitus Social History Social History (Updated 11/16/24 @ 08:42 by Manuela Day CMA) Smoking packs per day: 1 Smoking cigarettes per day: 20.0 Years smoked: 30 Smoking pack-years: 30.00 Smoking status: Current every day smoker Tobacco type: cigarettes Smokeless tobacco user: chewing tobacco Second hand tobacco smoke exposure: Yes Additional smoking assessment comments: Trying to quit. Alcohol intake: current Substance use: former Substance use type: marijuana Current Housing: Decline to Answer Concerned About Future Housing: Decline to Answer Difficulty Paying Gas/Electric Bills: Decline to Answer Difficulty Paying for Meds: Decline to Answer Currently Unemployed: Decline to Answer Education: Decline to Answer Difficulty w/ Childcare or Family Care: Decline to Answer Living arrangements: alone Occupation/Education: occupation Additional occupation/education comments: [employer] Gender identity (if verbalized by the patient): Male Spiritual care concerns: No Meds Home Medications and Allergies Home Medications Medication Instructions Recorded Confirmed Type cyclobenzaprine 10 mg tablet 10 mg PO TID PRN muscle spasm #30 10/25/24 12/14/24 Rx tabs Allergies Allergy/AdvReac Type Severity Reaction Status Date / Time Penicillins Allergy Unknown Rash Verified 12/14/24 09:48 Exam Narrative: On exam he is tender medially and has catching and locking of the knee. He has a positive Tyler's test and pain to palpation along the joint line. Neurologically he is intact. He walks with antalgic gait. He has pain with any manipulation of his knee. Radiology Reports: Comments: Magnetic Resonance Report Signed Patient: Josep Finley MRI of the right knee Clinical history: Instability Technique: Coronal proton density and proton density-weighted images, sagittal proton-density and T2 fat-sat images, and axial proton-density fat-saturated images were acquired. Findings: Anterior and posterior cruciate ligaments are intact. Medial collateral ligament and the lateral collateral ligament, but are intact. Popliteus tendon is intact. There is oblique/flap tear of the posterior horn of the medial meniscus, prob ably extending into the body segment. No lateral meniscal tear evident. There is moderate chondromalacia the femoral trochlea. There is mild to moderate chondromalacia of the medial joint line. Bone marrow signals are unremarkable. Extensor mechanism is intact. There is minimal joint effusion with minimal Ibrahim's cyst. Impression: Oblique/flap tear of the posterior horn of the medial meniscus, probably extending into the body segment. 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 Minimal joint effusion and minimal Ibrahim's cyst. Reviewed, dictated and finalized at [facility]. Knee X-Ray 10/24/24 Knee MRI 11/08/24 Thoracic Spine X-Ray 04/02/20 Lumbar Spine X-Ray 11/08/24 Assessment and Plan Assessment and plan (1) Acute medial meniscus tear of right knee: Code(s): S83.241A - Other tear of medial meniscus, current injury, right knee, initial encounter Status: Acute Assessment and Plan: Patient has meniscal tear right knee. He has catching locking and pain with any manipulation. He has failed conservative treatment like to consider surgical intervention. I discussed the risks, benefits, limitations, and alternatives with arthroscopic knee intervention in detail. Patient understands and agrees would like to proceed.
[2024-12-25] VITALS (7 sets, daily range): BP systolic 98–129; BP diastolic 67–81; PULSE 63–78; RESP 13–17; TEMP 36.6; O2SAT 95–98; BMI 23.8
--- OUTSIDE RECORDS SUMMARY | 2024-12-25 01:29 | XMS_ITS | Patient Health Record ---
Author Organization [facility] [place] Address [address] [facility] [place] [address] Care Team Providers Care Plumber Gasfitter Name Role Phone Thomas Hernandez Unavailable [phone] ALLERGIES Allergen (clinical drug ingredient) Drug/Non Drug [...] (M47.22) Active confirmed Cervical spondylosis without myelopathy (561728666) Problem Cervical radiculopathy (M54.12) Active confirmed Cervical radiculopathy (90979105) Problem 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) Active confirmed Spinal stenosis in cervical region (disorder) (14990017) Problem Herniated nucleus pulposus, C6-7 left (M50.223) Active confirmed Displacement of cervical intervertebral disc without myelopathy (67773181) VITAL SIGNS Heart Rate 80 /min 01/13/2024 Temperature 98.6 degrees Fahrenheit 01/13/2024 Respiratory Rate 18 /min 01/13/2024 Blood pressure diastolic 77 mm Hg 01/13/2024 Height 70 in 01/13/2024 Blood pressure systolic 137 mm Hg 01/13/2024 Weight 165 lbs 01/13/2024 BMI 23.67 kg/m2 01/13/2024 Encounters Encounter Location Date Provider Diagnosis [place] [facility] [address] [place] [address] 01/13/2024 Thomas Hernandez Cervical spondylosis with radiculopathy [...] left (ICD-10 - M50.223) PLAN OF TREATMENT No Information MEDICATIONS ADMINISTERED Medication Instructions Date of Administration Dosage Notes LEFT C5/6 and C6/7 Facet Injections 01/13/2024 LEFT C5/6 and C6/7 SESI's 12/22/2023 MEDICAL (GENERAL) HISTORY Medical History History ICD Code skin cancer headaches depression anxiety
--- OUTSIDE RECORDS SUMMARY | 2024-12-25 01:29 | XMS_ITS ---
Author Organization [facility] [place] Address [address] [place] [address] Care Team Providers Care Child Psychiatrist Name Role Phone Thomas Hernandez Unavailable [phone] ALLERGIES Allergen (clinical drug ingredient) Drug/Non Drug Allergy documented on EMR Reaction Allergy Type Onset Date Status Penicillin Unknown Drug Allergy Active REASON FOR VISIT WC--OK PER Tash Garcia/ Dr. Saulo Winter/ RN BABY and LEFT C5/6 & C6/7 SESI (s) [...] Notes Problem Cervical radiculopathy (M54.12) Active confirmed Problem Cervical spondylosis with radiculopathy (M47.22) Active confirmed Cervical spondylosis without myelopathy (347377654) Problem Herniated nucleus pulposus, C6-7 left (M50.223) Active confirmed Displacement of cervical intervertebral disc without myelopathy (49656102) Problem 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) Active confirmed Spinal stenosis in cervical region (disorder) (59912135) VITAL SIGNS Temperature 98.1 degrees Fahrenheit 12/22/19 24 Heart Rate 78 /min 12/22/2023 Blood pressure systolic 139 mm Hg 12/22/19 24 Blood pressure diastolic 83 mm Hg 024 Weight 165 lbs 12/22/2023 BMI 23.67 kg/m2 12/22/2023 Height 70 in 12/22/2023 Respiratory Rate 18 /min 12/22/2023 Encounters Encounter Location Date Provider Diagnosis [place] [facility] [address] [place] [address] 12/22/2023 Thomas Hernandez Cervical radiculopat hy M54.12 [...] Status post left shoulder rotator cuff repair 102.5. Work-related injury 03/15/2023.Plan1. Proceed with left C5/6 [...] * Josep YOST Karley:[birth year] (53 yo M)Acc No.[id number]:12/22/2023 Progress Notes Patient: Josep YOST Provider: Thomas Hernandez DO :1970 Age:53 Y Sex:Male Date:12/22/2023 Address:[address] [place] [address] Subjective: * Chief Complaints: * WC--OK PER Tash Garcia/ Dr. Saulo Winter/ RN BABY and LEFT C5/6 & C6/7 SESI (s) [...] it. tylenol. Oswestry Score 15. This 53-year-old SRSOU-yvgr-yghojybh white male presents to the pain clinic today upon referral from Dr. Saulo Winter, his orthopedic spine surgical elastic knitter hand frame, with specific request for left C5/6 and C6/7 selective epidural steroid injections utilizing transforaminal approaches with fluoroscopy. This gentleman describes a work-related injury that occurred on 03/15/2023. 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 I ing study [place] cervical spine without contrast 11/23/2023 revealed normal [...] mg preservative free and particulate free dexamethasone. [place] withdrawn tips intact. No complications encountered. Prep [...] pain first begin? months ago This 53-year-old LYLJQ-lfil-xexyfuss white male presents to the pain clinic today upon referral from Dr. Saulo Winter, his orthopedic spine surgical elastic knitter hand frame, with specific request for left C5/6 and C6/7 selective epidural steroid injections utilizing transforaminal approaches with fluoroscopy. This gentleman describes a work-related injury that occurred on 03/15/2023. 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
--- OUTSIDE RECORDS SUMMARY | 2024-12-25 01:29 | XMS_ITS | Clinical Summary ---
Author Organization [facility] [employer] Address [address] [facility] [place] [address] Care Team Providers Care Blood Splatter Analyst Name Role Phone Kodi Naidu MD Primary Care Provider [phone] Source Comments [facility] [employer],non-owned Affiliates and Associated Physician Practices is amultiple site organization consisting of ambulatory clinics and hospital sitesin [place], [place], [place] and [place]. This disclosure is being madepursuant to the Care Everywhere program and may not contain all information available regarding this patient. Last updated 18.[facility] [employer] Allergies Active Allergy Reactions Criticality Noted [...] Group ID:Not on file Type:Worker's Comp Address: [address] [place] [address] Care Teams Blood Splatter Analyst Relationship Specialty Start Date End Date Kodi Naidu MD [address] [place] [address] PCP - General 09/26/21
--- OUTSIDE RECORDS SUMMARY | 2024-12-25 01:29 | XMS_ITS | Encounter Summary ---
Author Organization [facility] Address [address] [place] [address] Phone Care Team Providers Care Spoke Maker Name Role Phone Kodi Naidu MD Primary Care Provider [phone] Manasa Barnett MD Unavailable [phone] Encounter Details Date Type Department Care Team (Late st Contact Info) Description 12/11/2024 Results Follow-Up [facility] Dermatology [address] [facility] [facility] [address] [place] [address] Roula Horan MD PhD [address] [place], [place] [id number] Surgical pathology Social History Tobacco Use Types Packs/Day Years Used Date Smoking Tobacco: Every Day Sex and Gender Information Value Date Recorded Sex Assigned at Not on file 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 Scheduled for EDC. documented in this encounter Plan of Treatment Not on file documented as of this encounter Visit Diagnoses Not on filedocumented in this encounter Care Teams Spoke Maker Relationship Specialty Start Date End Date Kodi Naidu MD PCP - General 11/25/16 Manasa Barnett MD [address] [place] [address] Referring Physician Dermatology 07/15/20 documented as of this encounter
--- OUTSIDE RECORDS SUMMARY | 2024-12-25 01:29 | XMS_ITS | Clinical Summary ---
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 [address] PCP - General Family Practice 10/13/22
--- OUTSIDE RECORDS SUMMARY | 2024-12-25 01:30 | XMS_ITS | Continuity of Care Document ---
Author Organization [facility] Address [address] [place] [address] Phone Care Team Providers Care Java Portal Developer Name Role Phone Billy PASSENGER SOLICITOR, Nichol Unavailable Unavailable Advance Directives Directive Yes / No Effective Date File Name No Information Encounters Encounter Description Practice Location Reason(s) For Visit Diagnoses Date Provider Providers Copied on Encounter [facility], [address], [place], [place], [id number], tel:[phone] [facility] No Information Billy Gandara. [address], [facility] [address], [place], [place], [id number]. tel:[phone] Family History Family Member Type Diagnosis Age At Onset No Information Payers Payer name Insurance type Covered libertarian ID Authoriza tion(s) No Information Social History [...]
--- OUTSIDE RECORDS SUMMARY | 2024-12-25 01:30 | XMS_ITS ---
Author Organization [facility] Address [address] [address] Care Team Providers Care Signing Teacher Name Role Phone Thomas Hernandez [phone] Encounters Encounter Location Date Provider Diagnosis [place] [facility] [address] [place] [address] 12/21/2023 Thomas Hernandez PLAN OF TREATMENT No Information Progress Notes * Josep YOSTDOB: [birth year] (53 yo M)Acc No.[id number]:12/21/2023 Patient: Josep YOST :1970 Age:53 Y Sex:Male Address:[address] [place] [address] * true * Date:
--- OUTSIDE RECORDS SUMMARY | 2024-12-25 01:30 | XMS_ITS | Referral Summary ---
Author Organization [address] Address [address] [place] [address] Care Team Providers Care Cleaner And Presser Name Role Phone Kodi Naidu MD Primary Care Provider [phone] Manasa Barnett MD Unavailable [phone] Encounters Date Type Department Care Team Description 12/19/2024 9:15 AM CDT Procedure visit [facility] Dermatology [address] [place] [address] Outpatient Health [address] [place] [phone] Roula Horan MD PhD BCC (basal cell carcinoma), trunk (Primary Dx); Actinic keratosis 12/11/2024 Results Follow-Up [facility] Dermatology [address] [place] [address] Outpatient Health [address] [place] [phone] Roula Horan MD PhD Surgical pathology 12/07/2024 Orders Only [facility] [address] [place] [address] Roula Horan MD PhD Neoplasm of unspecified behavior of bone, soft tissue, and skin 12/06/2024 3:00 PM CDT Office Visit [facility] Dermatology [address] [place] [address] Outpatient Health [address] [place] [phone] Roula Horan MD PhD Neoplasm of unspecified [...] on file 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 [place] [address] [facility], [address], [place] [address] [email or web address] Note to Patients: This report may contain [...] Physician Information: Roula Horan MD PhD [address] [facility] [place] [address] , DERMATOPATHOLOGY REPORT RESULTS DIAGNOSIS: SKIN, RIGHT [...] ag/mat ICD-9 A; ZSD.176 Clerical Data A; 00188 The characteristics of special, immunohistochemical, and immunofluorescence stains and in-situ hybridization tests performed by the [facility] were deemed acceptable in ongoing quality control assessor measures and in compliance with regulations drawn from the Clinical Laboratory Improvement Act hj2217 (CLIA '88). Control reactions for all stains performed were deemed adequate and appropriate by a pathologist prior to evaluation of patient tissue. Some diagnoses were rendered with the assistance of laboratory-developed tests utilizing analyte-specific reagents; the performance characteristic of these tests were determined by [facility] and are not cleared or approved by the [place] Food an Drug administration. Laboratory developed test may only be performed in a facility that is certified by the [facility] as a high-complexity laboratory under CLIA '88. These tests are used for clinical purposes and are not investigational. Roula Horan MD PhD LAB PATHOLOGY ORDERABLE S Final Result Performing Organization Address City/State/[facility] Co de Phone Number DERMATOPATHOLOGY CENTER [address] [place] [phone] from Last 3 Months Insurance [employer] OOS Care Teams Cleaner And Presser Relationship Specialty Start Date End Date Kodi Naidu MD PCP - General 11/25/16 Manasa Barnett MD [address] [place] [address] Referring Physician Dermatology 07/15/20
--- OUTSIDE RECORDS SUMMARY | 2024-12-25 01:30 | XMS_ITS | Clinical Summary ---
Author Organization [address] Address [address] [place] [address] Care Team Providers Care Mirror Maker Name Role Phone Kodi Naidu MD Primary Care Provider [phone] Manasa Barnett MD Unavailable [phone] Allergies Active Allergy Reactions Criticality Noted [...] Description 12/19/2024 9:15 AM CDT Procedure visit [facility] Dermatology [facility] [address] [place] [address] Roula Horan MD PhD BCC (basal cell carcinoma), trunk (Primary Dx); Actinic keratosis 12/11/2024 Results Follow-Up [facility] Dermatology [address] [place] [address] Outpatient Health [address] [place] [address] Roula Horan MD PhD Surgical pathology 12/07/2024 Orders Only [facility] [address] [place] [address] Roula Horan MD PhD Neoplasm of unspecified behavior of bone, soft tissue, and skin 12/06/2024 3:00 PM CDT Office Visit [facility] Dermatology [address] [facility] [address] [place] [address] Roula Horan MD PhD Neoplasm [...] on file 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 Gender Identity Not on file Sexual Orientation [...] shave biopsy) 12/06/2024 12/07/2024 8:54 AM CDT [facility]MAT[facility]Y [facility] - 12/08/2024 3:48 PM CDT EPIC results best viewed via link to PDF [facility] [address] [facility], [address] [place] [address] [email or web address] Note to Patients: This report [...] Physician Information: Roula Horan MD PhD [address] [facility] [place] [address] , DERMATOPATHOLOGY REPORT RESULTS DIAGNOSIS: SKIN, RIGHT [...] ag/mat ICD-9 A; ZSD.176 Clerical Data A; 02965 The characteristics of special, immunohistochemical, and immunofluorescence stains and in-situ hybridization tests performed by the [facility] Dermat[facility] were deemed acceptable in ongoing quality systems engineer measures and in compliance with regulations drawn from the Clinical Laboratory Improvement Act lt1672 (CLIA '88). Control reactions for all stains performed were deemed adequate and appropriate by a pathologist prior to evaluation of patient tissue. Some diagnoses were rendered with the assistance of laboratory-developed tests utilizing analyte-specific reagents; the performance characteristic of these tests were determined by [facility] and are not cleared or approved by the [place] Food an Drug administration. Laboratory developed test may only be performed in a facility that is certified by the [facility] as a high-complexity laboratory under CLIA '88. These tests are used for clinical purposes and are not investigational. us Roula Horan MD PhD LAB PATHOLOGY ORDERABLE S Final Result [facility]Y CENTER [address] [place] [phone] from Last 3 Months Insurance [employer] ACCESS OOS Care Teams Mirror Maker Relationship Specialty Start Date End Date Kodi Naidu MD PCP - General 11/25/16 Manasa Barnett MD [address] [place] [address] Referring Physician Dermatology 07/15/20
--- OUTSIDE RECORDS SUMMARY | 2024-12-25 01:30 | XMS_ITS | Continuity of Care Document ---
Author Organization [facility] [place] Address [address] [facility] [address] [place] [address] Phone Care Team Providers Care Electrical Intern Name Role Phone Kwasi Villarreal Unavailable Unavailable Procedures Procedure Date Therapeutic Activities Neuromuscular Re-Ed Therapeutic Exercise Hot or Cold Pack Therapeutic Activities Neuromuscular Re-Ed Therapeutic Exercise Therapeutic Activities Neuromuscular Re-Ed Therapeutic Exercise Progress Note Therapeutic Activities Neuromuscular Re-Ed Therapeutic [...] Therapy Therapeutic Activities Neuromuscular Re-Ed Therapeutic Exercise WASTE BALER Acute Therapeutic Activities Neuromuscular Re-Ed Therapeutic Exercise Therapeutic Activities Neuromuscular Re-Ed Therapeutic Exercise Therapeutic Activities Neuromuscular Re-Ed Therapeutic Exercise Therapeutic Activities Neuromuscular Re-Ed Therapeutic Exercise Manual Therapy Therapeutic Activities Neuromuscular Re-Ed Therapeutic Exercise Manual Therapy Therapeutic Activities Neuromuscular Re-Ed Therapeutic Exercise Manual Therapy Hot or Cold Pack WASTE BALER Acute Therapeutic Activities Neuromuscular Re-Ed Therapeutic Exercise Manual Therapy Hot or Cold Pack Therapeutic Activities Neuromuscular Re-Ed Therapeutic Exercise Manual Therapy Therapeutic Activities Neuromuscular Re-Ed Therapeutic Exercise Manual Therapy Hot or Cold Pack Therapeutic Activities Therapeutic Exercise Neuromuscular Re-Ed Manual Therapy Hot or Cold Pack Therapeutic [...] Therapy Therapeutic Exercise Hot or Cold Pack Therapeutic Activities Neuromuscular Re-Ed Therapeutic Exercise Manual Therapy Hot or Cold Pack Therapeutic Activities Neuromuscular Re-Ed Therapeutic Exercise Manual Therapy Hot or Cold Pack Progress Note Neuromuscular Re-Ed Therapeutic Activities Therapeutic Exercise Hot or Cold Pack Manual [...] Diagnoses Date Provider Providers Copied on Encounter [facility], [address] [address], [place], [place], [id number], [place] tel:[phone] [place] No Information Nov-2 5 Muehl Kwasi. [address] [facility], [address], [place], [address], [place]. tel:[phone] [address], [place], [place], [address], [place] tel:[phone] [place] No Information 2 5 Muehl Kwasi. [address] [facility], [address], [place], [address], [place]. tel:[phone] Referring Provider: Kodi Naidu, [place], [address]. tel:[phone] 2569 [facility] [address] [place] [address], [id number], tel:[phone] [place] No Information - 5 Muehl Kwasi. [address] [place] [address], [facility] [address], [place], [address], [place]. tel:[phone] Referring Provider: Kodi Naidu, [address] [place], [address]. tel:[phone] 2321 [facility] [address] [place] [address], [id number], tel:[phone] [place] No Information 0 5 Muehl Kwasi. [address] [facility], [facility] [address], [place], [address], [place]. tel:[phone] Referring Provider: Kodi Naidu, [place], [address]. tel:[phone] [facility], [address] [facility] [address], [place], [place], [id number], tel:[phone] [place] No Information Nov-0 3- 5 Muehl Kwasi. [address] [facility], [facility] [address], [address], [place]. tel:[phone] Referring Provider: Kodi Naidu, [address] [facility], [place], [address]. tel:[phone] 4767 [facility], [id number], tel:[phone] [place] No Information Apr-0 1- 5 Muehl Kwasi. [address] [facility], [facility] [address], [address], [place]. tel:[phone] Referring Provider: Kodi Naidu, [address] [facility], [place], [address]. tel:[phone] 4331 [facility] [address], [id number], tel:[phone] [place] No Information Oct-2 8- 5 Muehl Kwasi. [address] [place] [address], [facility] [address], [address], [place]. tel:[phone] Referring Provider: Kodi Naidu, [address] [place], [address]. tel:[phone] [facility], [id number], tel:[phone] [facility] Onsite No Information 4 Federica Ochoa. . Referring Provider: Saulo Winter [address] [facility] [address], [place], [address]. tel:[phone] [facility] [address], [place], [place], [id number], [place] tel:[phone] [facility] Onsite No Information - 4 Federica Ochoa. . Referring Provider: Saulo Winter [address] [facility] [address], [place], [address]. tel:[phone] [facility] [facility] [address], [place], [place], [address], [place] tel:[phone] [facility] Onsite No Information Wing-1 2-202 4 Federica Don. . Referring Provider: Saulo Winter, [address], [place], [address]. tel:[phone] [facility], [place], [place], [address], [place] tel:[phone] [facility] No Information Wing-1 0-202 4 Federica Don. . Referring Provider: Saulo Winter, [address], [place], [address]. tel:[phone] [facility], [place], [place], [id number], [place] tel:[phone] [facility] No Information Wing-0 7-202 4 Federica Don. . Referring Provider: Saulo Winter [address], [place], [address]. tel:[phone] [facility], [place], [place], [address], [place] tel:[phone] [facility] No Information Wing-0 5-202 4 Federica Don. . Referring Provider: Saulo Winter [address], [place], [address]. tel:[phone] [facility], [place], [place], [address], [place] tel:[phone] [facility] No Information Wing-0 3-202 4 Federica Don. . Referring Provider: Saulo Winter, [address], [place], [address]. tel:[phone] [facility], [place], [address], [place] tel:[phone] [facility] No Information December-3 1-202 4 Federica Don. . Referring Provider: Saulo Winter [address], [place], [address]. tel:[phone] [facility], [place], [place], [address], [place] tel:[phone] [facility] No Information December-2 - 4 Federica Don. . Referring Provider: Saulo Winter [address] [facility] [address], [place], [address]. tel:[phone] [facility], [place], [place], [address], [place] tel:[phone] [facility] No Information December-2 4-202 4 Federica Don. . Referring Provider: Saulo Winter [address] [facility] [address], [place], [address]. tel:[phone] [facility], [place], [address], [place] tel:[phone] [facility] No Information December-2 2- 4 Federica Don. . Referring Provider: Saulo Winetr [address] [facility] [address], [place], [address]. tel:[phone] [facility], [place], [place], [id number], [place] tel:[phone] [facility] Onsite No Information December-2 0- 4 Federica Don. . Referring Provider: Saulo Winter [address] [facility] [address], [place], [address]. tel:[phone] [facility], [place], [place], [address], [place] tel:[phone] [place] No Information Mar-0 7-202 4 Muehl Kwasi. [address] [facility], [address], [place], [address], [place]. tel:[phone] Referring Provider: K[address], [place], [address]. tel:[phone] [facility], [place], [place], [id number], [place] tel:[phone] [place] No Information Mar-0 5-202 4 Muehl Kwasi. [address] [facility], [facility] [address], [place], [place], [facility], . tel:[phone] Referring Provider: Paco Gomez, [address], [place], [address]. tel:[phone] [place], [place] [address], [place], [place], [address], tel:[phone] [place] No Information Sep- 4 Muehl Kwasi. [address] [place] [address], [address], [place], [facility], . tel:[phone] Referring Provider: Paco Gomez, [address], [place], [address]. tel:[phone] [place], [place] [address]e [facility], [place], [place], [id number], tel:[phone] [place] No Information 4 Muehl Kwasi. [address] [place] [address], [address], [place], [place], [facility], . tel:[phone] Referring Provider: Paco Gomez, [address], [place], [address]. tel:[phone] [place] [address], [id number], tel:[phone] [place] No Information 4 Muehl Kwasi. [address] [place] [address], [facility] [address], [place], [place], [facility], . tel:[phone] Referring Provider: Paco Gomez, [address], [place], [address]. tel:[phone] [place], [place] [address]e [address] [place] [address], [id number], tel:[phone] [place] No Information 2 4 Muehl Kwasi. [address] [place] [address], [address], [place], [place], [facility], . tel:[phone] Referring Provider: Paco Gomez, [address], [place], [address]. tel:[phone] [place] [address] [address], [place], [place], [id number], tel:[phone] [place] No Information 4 Muehl Kwasi. [address] [place] [address], [address], [place], [facility], . tel:[phone] Referring Provider: Paco Gomez, [address], [place], [address]. tel:[phone] [place] [address] [address], [place], [place], [id number], tel:[phone] [place] No Information 4 Muehl Kwasi. [address] [place] [address], [address], [place], [facility], . tel:[phone] Referring Provider: Paco Gomez [address], [place], [address]. tel:[phone] [place] [address] [address], [place], [place], [id number], tel:[phone] [place] No Information 4 Muehl Kwasi. [address] [place] [address], [address], [place], [facility], . tel:[phone] Referring Provider: Paco Gomez [address], [place], [address]. tel:[phone] [place] [address] [address], [place], [place], [address], [place] tel:[phone] [place] No Information 0 4 Muehl Kwasi. [address] [place] [address], [address], [place], [facility], . tel:[phone] Referring Provider: Paco Gomez, [address], [place], [address]. tel:[phone] [place] [address] [address], [place], [place], [id number], tel:[phone] [place] No Information 0 4 Muehl Kwasi. [address] [place] [address], [address], [place], [facility], . tel:[phone] Referring Provider: Paco Gomez, [address], [place], [address]. tel:[phone] [place], [place] [address], [place], [place], [address], tel:[phone] [place] No Information 0 2 4 Muehl Kwasi. [address] [place] [address], [address], [place], [facility], . tel:[phone] Referring Provider: Paco Gomez, [address], [place], [address]. tel:[phone] [place], [place] [address]u[address] [place] [address], [id number], tel:[phone] [place] No Information 0 4 Muehl Kwasi. [address] [place] [address], [address], [place], [facility], . tel:[phone] Referring Provider: Paco Gomez, [address], [place], [address]. tel:[phone] [place] [address], [place], [place], [address], tel:[phone] [place] No Information 4 Muehl Kwasi. [address] [place] [address], [address], [place], [facility], . tel:[phone] Referring Provider: Paco Gomez, [address], [place], [address]. tel:[phone] [place] [address], [place], [place], [address], tel:[phone] [place] No Information 4 Muehl Kwasi. [address] [place] [address], [address], [place], [facility], . tel:[phone] Referring Provider: Paco Gomez, [address], [place], [address]. tel:[phone] [place] [address], [place], [place], [address], tel:[phone] [place] No Information 4 Muehl Kwasi. [address] [place] [address], [facility] [address], [place], [facility], . tel:[phone] Referring Provider: Paco Gomez, [address], [place], [address]. tel:[phone] [place] [address], [id number], tel:[phone] [place] No Information 4 Muehl Kwasi. [address] [place] [address], [facility] [address], [place], [facility], . tel:[phone] Referring Provider: Paco Gomez, [address], [place], [address]. tel:[phone] [place], [place] [address]e [address] [place] [address], [id number], tel:[phone] [place] No Information 4 Muehl Kwasi. [address] [place] [address], [facility] [address], [place], [facility], . tel:[phone] Referring Provider: Paco Gomez, [address], [place], [address]. tel:[phone] [place], [place] [address]e [address] [place] [address], [id number], tel:[phone] [place] No Information 4 Muehl Kwasi. [address] [place] [address], [address], [place], [facility], . tel:[phone] Referring Provider: Paco Gomez, [address], [place], [address]. tel:[phone] [place] [address] [address], [place], [id number], [place] tel:[phone] [place] No Information 4 Muehl Kwasi. [address] [place] [address], [address], [place], [facility], . tel:[phone] Referring Provider: Paco Gomez, [address], [place], [address]. tel:[phone] [place] [address], [place], [place], [address], tel:[phone] [place] No Information 4 Muehl Kwasi. [address] [place] [address], [address], [place], [facility], . tel:[phone] Referring Provider: Paco Gomez, [address], [place], [address]. tel:[phone] [place] [address], [place], [place], [address], [place] tel:[phone] [place] No Information 4 Elisa Huitron . Referring Provider: Paco Gomez, [address], [place], [address]. tel:[phone] [place] [address], [place], [place], [address], tel:[phone] [place] No Information 4 Muehl Kwasi. [address] [place] [address], [address], [place], [facility], . tel:[phone] Referring Provider: Paco Gomez, [address], [place], [address]. tel:[phone] [place] [address] [address], [place], [place], [address], tel:[phone] [place] No Information 4 Muehl Kwasi. [address] [place] [address], [address], [place], [facility], . tel:[phone] Referring Provider: Paco Gomez, [address], [place], [address]. tel:[phone] [place] [address]e [address], [place], [place], [address], tel:[phone] [place] No Information Shahid-0 2- 4 Muehl Kwasi. [address] [place] [address], [address], [place], [facility], . tel:[phone] Referring Provider: Paco Gomez, [address], [place], [address]. tel:[phone] [place], [place] [address]e [facility], [place], [place], [address], tel:[phone] [place] No Information Dec-2 9 3 Muehl Kwasi. [address] [place] [address], [facility] [address], [place], [facility], . tel:[phone] Referring Provider: Paco Gomez, [address], [place], [address]. tel:[phone] [place] [address]e [address] [place] [address], [id number], tel:[phone] [place] No Information Jul-2 6- 3 Muehl Kwasi. [address] [place] [address], [address], [place], [facility], . tel:[phone] Referring Provider: Paco Gomez, [address], [place], [address]. tel:[phone] [place], [place] [address]u[address], [place], [address], tel:[phone] [place] No Information Dec-2 2-202 3 Muehl Kwasi. [address] [place] [address], [address], [place], [facility], . tel:[phone] Referring Provider: Paco Gomez, [address], [place], [address]. tel:[phone] [place] [address] [address], [place], [place], [address], tel:[phone] [place] No Information 3 Muehl Kwasi. [address] [place] [address], [address], [place], [facility], . tel:[phone] Referring Provider: Paco Gomez, [address], [place], [address]. tel:[phone] [place] [address], [place], [place], [address], tel:[phone] [place] No Information 3 Muehl Kwasi. [address] [place] [address], [address], [place], [facility], . tel:[phone] Referring Provider: Paco Gomez, [address], [place], [address]. tel:[phone] [place] [address], [place], [place], [address], tel:[phone] [place] No Information 3 Muehl Kwasi. [address] [place] [address], [address], [place], [facility], . tel:[phone] Referring Provider: Paco Gomez, [address], [place], [address]. tel:[phone] [place] [address], [place], [place], [address], tel:[phone] [place] No Information 3 Muehl Kwasi. [address] [place] [address], [address], [place], [facility], . tel:[phone] Referring Provider: Paco Gomez, [address], [place], [address]. tel:[phone] [place] [address], [place], [place], [address], tel:[phone] [place] No Information 0 3 Muehl Kwasi. [address] [place] [address], [address], [place], [facility], . tel:[phone] Referring Provider: Paco Gomez, [address], [place], [address]. tel:[phone] [place] [address]e [address], [place], [address], tel:[phone] [place] No Information 0 3 Muehl Kwasi. [address] [place] [address], [address], [place], [facility], . tel:[phone] Referring Provider: Paco Gomez, [address], [place], [address]. tel:[phone] [place] [address], [place], [id number], tel:[phone] [place] No Information 3 Muehl Kwasi. [address] [place] [address], [address], [place], [facility], [place]. tel:[phone] Referring Provider: Paco Gomez, [address], [place], [address]. tel:[phone] [place], [place] [address], [place], [address], tel:[phone] [place] No Information 3 Muehl Kwasi. [address] [place] [address], [address], [place], [facility], [place]. tel:[phone] Referring Provider: Paco Gomez, [address], [place], [address]. tel:[phone] [place] [address]e [address], [place], [address], tel:[phone] [place] No Information 3 Muehl Kwasi. [address] [place] [address], [address], [place], [facility], . tel:[phone] Referring Provider: Paco Gomez, [address], [place], [address]. tel:[phone] [address] [place], [place] [address], [place], [address], tel:[phone] [place] No Information 3 Muehl Kwasi. [address] [place] [address], [address], [facility], . tel:[phone] Referring Provider: Paco Gomez, [address], [place], [address]. tel:[phone] [address] [place] [address], [place], [address], tel:[phone] [place] No Information 3 Muehl Kwasi. [address] [place] [address], [address] [address], . tel:[phone] Referring Provider: Paco Gomez [address], [place], [address]. tel:[phone] [address] [place] [address], [place], [address], tel:[phone] [place] No Information 3 Muehl Kwasi. [address] [place] [address], [address] [address], . tel:[phone] Referring Provider: Paco Gomez [address], [place], [address]. tel:[phone] [address] [place], [place] [address], [place], [id number], tel:[phone] 516245|[id number]|2024-12-25 01:30:00|2024-12-25 01:29:00|XMS_ITS|BKG DAEMON|External Medical Summaries|[id number]|" Progress note - 01/13/2024 Created on: December 25, 2024 Josep Yost : 1970 Sex: Male Author Organization [facility] Address [address] [facility] [place] [address] Care Team Providers Care Electrical Intern Name Role Phone Thomas Hernandez Unavailable [phone] ALLERGIES Allergen (clinical drug ingredient) Drug/Non Drug [...] 01/13/2024 Encounters Encounter Location Date Provider Diagnosis [place] [facility] [address] [facility] [place] [address] 01/13/2024 Thomas Hernandez Cervical spondylosis with radiculopathy [...] C6/7 Facet Injections 01/13/2024 Progress Notes * Josep YOST:[birth year] (53 yo M)Acc No.[id number]:01/13/2024 Progress Notes Patient: Josep YOST Provider: Thomas Hernandez DO :1970 Age:53 Y Sex:Male Date:01/13/2024 Address:[address] [place] [address] Subjective: * Chief Complaints: * WC--OK PER Maryellen Jaime/ Dr. Saulo Winter/ LEFT C5/6 and C6/7 Facet (s) * HPI: Follow-up Questionnaire: Pain Evaluation This patient encounter was conducted at the [facility]. The patient completed a questionnaire on the [...] Pain is Associated with: tingling. This 53-year-old yyioy-gium-cxgmjhcd white male presents to the pain clinic [...] day. He indicates allergy to penicillin. I [facility] study [facility] cervical spine 11/23/2023 revealed grossly normal spinal [...] mg preservative free and particulate free dexamethasone. [place] withdrawn. No complications encountered. Prep was wiped [...] true * Provider: Thomas Hernandez DO Date: 01/13/2024 History and Physical Notes * HPI (History of Present Illness) Category Sub-Category Detail Notes Category Not es Follow-up Questionnaire Average Pain Since Last Visit on Scale of 0 to 10: 6 This 53-year-old uyvjx-iogv-lxudlziq white male presents to the pain clinic [...] was conducted at the [facility]. The patient completed a questionnaire on the [...] does not describe signs/symptoms of cervical myelopathy "
[2024-12-25] MEDS: LACTATED RINGERS 1,000 ML 30 ML IV CONT (06:30)
[2024-12-25] MEDS: ACETAMINOPHEN 500 MG TABLET 1000 MG PO (06:52)
--- NOTE | 2024-12-25 06:52 | WPDHPUPDATE1 ---
History and Physical Update Update Date/Time: 12/25/24 06:52 History and Physical has been reviewed, including an updated exam of the patient. There are NO changes in the patient's condition. Risks, benefits, and alternatives have been discussed and questions answered. Patient agrees to proceed with procedure.
[2024-12-25] MEDS: KETOROLAC 15 MG/ML VIAL (*BKC) IV PUSH (06:53)
[2024-12-25] MEDS: ceFAZolin 2 GM/D5W 50 ML 2 GM/50 ML BAG IVPB (07:25)
[2024-12-25] MEDS: LIDO 1%/EPINEPHRINE 1:100,000 50 ML VIAL 30 ML INFILTRATE (08:01)
--- NOTE | 2024-12-25 08:02 | W.PM.PROC2 ---
Procedure Note - Detailed Date of Procedure 12/25/24 Pre-op Diagnosis Right Medial Meniscal Tear Post-op Diagnosis Same Procedure Performed RIGHT knee arthroscopy with partial meniscectomy Surgeon Jak Warren MD Anesthesia General Indications Pain, Locking and Catching Description of Procedure Patient brought to operating room # 8. An anesthetic was administered. The knee was sterilely prepped and draped in the usual manner. Standard portals were used. Superior medial portal was used for the outflow cannula, inferior lateral portal was used for the scope, inferior medial portal was used for the instruments. Arthroscopy was performed, the patellar femoral joint degenerative changes. The medial compartment showed a complex tear. 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 The lateral compartment showed fraying. The ACL was intact. Using baskets and елена the meniscal tear was trimmed back to a stable base so the nothing further could be pulled into the joint. Any loose or delaminated fragments were gently trimmed to a stable base. He had a bit of a plica this is debrided with a shaver, as well. At this point the instruments were withdrawn, sutures placed and patient left the operating room in satisfactory condition. Estimated Blood Loss 20 Drains No Packing No Pathology None sent Complications No immediate complications Condition Stable Disposition PACU [facility] Billing Surgery - Charge Forward: Surgery Billing ([id number] [facility])
--- NOTE | 2024-12-25 08:48 | P.PNAN_ITS ---
Anes - Initial Pre Proc Eval Procedure: Operation Date: 12/25/24 07:30 Proposed Procedures p Right Knee Arthroscopy, Partial Medial Meniscectomy - Jak Warren MD Date/Time: 12/25/24 08:48 Surgeon: Jak Warren MD Pre Op Diagnosis: Rt Medial Meniscal Tear Patient Data Age: 54 Gender: M Height: 1.78 m Weight: 75.4 kg Last Vital Signs Temp 36.6 C 12/25/24 08:08 Pulse 71 12/25/24 08:45 Resp 17 12/25/24 08:45 BP 120/75 12/25/24 08:45 Pulse Ox 95 12/25/24 08:45 O2 Del Method Room Air 12/25/24 08:45 O2 Flow Rate 8 12/25/24 08:20 Allergies Allergy/AdvReac Type Severity Reaction Status Date / Time Penicillins Allergy Unknown Rash Verified 12/25/24 06:44 Home Medications Medication Instructions Recorded Confirmed Type cyclobenzaprine 10 mg tablet 10 mg PO TID PRN muscle spasm #30 10/25/24 12/14/24 Rx tabs hydrocodone 5 mg-acetaminophen 325 1 tablet PO Q4H PRN pain #30 tabs 12/25/24 Rx mg tablet Patient hx anesthesia problems: none Family hx anesthesia problems: none Results Review: All pre-operative results and documents have been reviewed as part of the pre-operative evaluation. [facility] Past Medical History Medical History Prostatitis BMI 23.0-23.9, adult Screening for malignant neoplasm of prostate BMI 24.0-24.9, adult Tobacco abuse Eye lesion Surgical History Surgical History History of repair of rotator cuff Family History Family History Father Malignant neoplasm of prostate Family history of diabetes mellitus in first degree relative Mother Sibling Hypertension Sibling Cancer Hypertension Sibling Family history of diabetes mellitus in first degree relative Other Diabetes mellitus Social History Social History Smoking packs per day: 1 Smoking cigarettes per day: 20.0 Years smoked: 30 Smoking pack-years: 30.00 Smoking status: Current every day smoker Tobacco type: cigarettes Smokeless tobacco user: chewing tobacco Second hand tobacco smoke exposure: Yes Additional smoking assessment comments: Trying to quit. Alcohol intake: current Substance use: never Substance use type: does not use Current Housing: Decline to Answer Concerned About Future Housing: Decline to Answer Difficulty Paying Gas/Electric Bills: Decline to Answer Difficulty Paying for Meds: Decline to Answer Currently Unemployed: Decline to Answer Education: Decline to Answer Difficulty w/ Childcare or Family Care: Decline to Answer Living arrangements: alone Occupation/Education: occupation Additional occupation/education comments: [employer] Gender identity (if verbalized by the patient): Male Spiritual care concerns: No Anes - Eval Final PreProcedure Day of Procedure 12/25/24 08:48 Patient weight: normal Heart: regular rate and rhythm Lungs: decreased breath sounds Airway: Mallampati scale class II Neurological: alert and oriented Last oral intake: >/= 8 hours ASA classification: II Emergent: no Anesthetic plan: proceed Anesthesia type and monitoring: general LMA and standard monitoring Results Review: All pre-operative results and documents have been reviewed as part of the pre- operative evaluation. Informed Consent: The patient's anesthetic plan and its attendant risks and benefits were dis cussed with the patient/family/POA. Questions were solicited and answers provided to the satisfaction of the patient/family/POA.
== END 2024-12-25 09:45 | disposition home or self-care (01) ==
PROVIDERS: PCP Family Medicine; Visit Provider Orthopaedic Surgery
PROC: (CPT 29870; principal; 2024-12-25 07:30)
DX: S83.231A Complex tear of medial meniscus, current injury, right knee, initial encounter (principal); M94.261 Chondromalacia, right knee; M25.461 Effusion, right knee; M71.21 Synovial cyst of popliteal space [Baker], right knee; M17.11 Unilateral primary osteoarthritis, right knee; F17.220 Nicotine dependence, chewing tobacco, uncomplicated; X58.XXXA Exposure to other specified factors, initial encounter; Z79.891 Long term (current) use of opiate analgesic; Z98.890 Other specified postprocedural states; Z80.42 Family history of malignant neoplasm of prostate
CPT/HCPCS: 29881; A9270; J0690; J1100; J1885; J2004; J2250; J2405; J2704; J3010; J7120